=== PATIENT | female | born 1955 | race Caucasian/White ===

== ENCOUNTER 2024-04-06 19:29 | Inpatient (IN) | payer BC, MEDICAID ==
[~2024-04-06] VITALS: Ht 162.6 cm; Wt 74.5 kg
[~2024-04-06 19:29] MED LIST: CARI250T
--- NOTE | 2024-04-06 19:38 | ECG ---
[facility] Test Date: 2024-04-06 Test Time: 19:33:43 Pat Name: PASCUAL PERES Department: ER Room: [address] [place] [address] Gender: F Portal Administrator: THALIA : 1955 Requested By: DANUTA MAYER Order Number: [id number] Reading MD: Hilton Martinez Measurements Intervals [place] Rate: 83 P: -15 GA: 195 QRS: 33 QRSD: 85 T: 70 QT: 400 QTc: 470 Interpretive Statements Sinus rhythm Ventricular premature complex Probable anteroseptal infarct, old Electronically Signed On 04-12-2024 16:56:02 PST by Hilton Martinez Please click the below link to view image of tracing.
--- NOTE | 2024-04-06 19:47 | ED.PDOC ---
SOB-HPI HPI Comments 68 year old female who came to ER via EMS for shortness of breath. Patient does have history of COPD. States for the past 2 days she has been having productive cough with clear sputum, with shortness of breath and wheeze. Inhalers taken has offered no relief. Patient was saturating 100% room air. Chief Complaint: Shortness of breath Time Seen by MD: 19:47 Reviewed notes: Nurses Notes Information Source: Patient Mode of Arrival: EMS Severity: Moderate Timing: Days Duration: Intermittent Context: At Rest, With Light Exertion PE Risk Factors: None History of: COPD Prehospital treatment: Breathing Tx, Oxygen Modifying Factors: Nothing Associated Signs and Symptoms: Wheeze, Cough If cough with SOB: Productive, Clear Past Medical History PAST MEDICAL HISTORY: COPD Surgical History: Denies all surgeries BAND CUTTER History: Denies all BAND CUTTER Hx Family History Family History: Reviewed,noncontributory to illness Social History Smoker: Non-Smoker Alcohol: Denies ETOH Use Drugs: Denies Drug Use Lives In: Home Constitutional: denies: chills, diaphoresis, fatigue, fever, malaise, sweats, weakness, others EENTM: denies: blurred vision, double vision, ear bleeding, ear discharge, ear drainage, ear pain, ear ringing, eye pain, eye redness, hearing loss, mouth pain, mouth swelling, nasal discharge, nose bleeding, nose congestion, nose pain, photophobia, tearing, throat pain, throat swelling, voice changes, others Respiratory: reports: SOB at rest, shortness of breath, wheezing; denies: cough, hemoptysis, orthopnea, SOB with excertion, stridor, others Cardiovascular: denies: chest pain, dizzy spells, diaphoresis, Dyspnea on exertion, edema, irregular heart beat, left arm pain, lightheadedness, palpita tions, PND, syncope, others Gastrointestinal: denies: abdomen distended, abdominal pain, blood streaked nasir wels, constipated, diarrhea, dysphagia, difficulty swallowing, hematemesis, melena, nausea, poor appetite, poor fluid intake, rectal bleeding, rectal pain, vomiting, others Genitourinary: denies: abnormal vagina bleeding, burning, dyspareunia, dysuria, flank pain, frequency, hematuria, incontinence, pain, , vagina discharge, urgency, others Neurological: denies: dizziness, fainting, headache, left sided numbness, left sided weakness, numbness, paresthesia, pre-existing deficit, right sided numbness, right sided weakness, seizure, speech problems, tingling, tremors, weakness, others Musculoskeletal: denies: back pain, gout, joint pain, joint swelling, muscle pain, muscle stiffness, neck pain, others Integumetry: denies: bruises, change in color, change in hair/nails, dryness, laceration, lesions, lumps, rash, wounds, others Allergic/Immunocompromised: denies: Difficulty Healing, Frequent Infections, Hives, Itching, others Hematologic/Lymphatic: denies: anemia, blood clots, easy bleeding, easy bruis ing, swollen glands, others Endocrine: denies: excessive hunger, excessive sweating, excessive thirst, exc essive urination, flushing, intolerance to cold, intolerance to heat, unexplained weight gain, unexplained weight loss, others Psychiatric: denies: anxiety, bipolar disorder, depression, hopeless, panic disorder, schizophrenia, sleepless, suicidal, others Physical Exam General Appearance: No Apparent Distress, Normal HEENT: Normal ENT Inspection, Pharynx Normal, TMs Normal Neck: Full Range of Motion, Non-Tender, Normal, Normal Inspection Respiratory: Chest Non-Tender, No Accessory Muscle Use, Wheezing Cardiovascular: No Edema, No JVD, No Murmur, No Gallop, Normal Peripheral Pulses, Regular Rate/Rhythm Breast Exam: Deferred Gastrointestinal: No Organomegaly, Non Tender, No Pulsatile Mass, Normal Bowel Sounds, Soft Genitalia: Deferred Pelvic: Deferred Rectal: Deferred Extremities: No calf tenderness, Normal capillary refill, Normal inspection, Normal range of motion, Non-tender, No pedal edema Musculoskeletal : Apperance: Normal Neurologic: Alert, textile examiner II-XII nml as Tested, No Motor Deficits, Normal Affect, Normal Mood, No Sensory Deficits Cerebellar Function: Normal Reflexes: Normal Skin: Dry, Normal Color, Warm Lymphatic: No Adenopathy Was a procedure done? Was a procedure done?: No Differential Dx Differential Diagnosis: Asthma, Bronchitis, COPD, Pneumonia, Respiratory Distress X-Ray, Labs, Meds, VS Vital Signs Date Time Temp Pulse Resp B/P (MAP) Pulse Ox O2 Delivery O2 Flow Rate FiO2 04/06/24 20:00 18 94 Room Air* 0 21 04/06/24 19:35 97.5 89 18 150/88 (108) 100 04/06/24 19:35 97.5 89 18 150/88 (108) 100 97.5 04/06/24 19:33 83 Lab Test 04/06/24 19:57 Range/Units White Blood Count 11.3 H 4.4-10.8 10^3/uL Red Blood Count 4.28 4.0-5.20 10^6/uL Hemoglobin 13.7 12.2-16.2 g/dL Hematocrit 39.1 36.0-46.0 % Mean Corpuscular Volume 91.4 80.0-100.0 fL Mean Corpuscular Hemoglobin 32.1 H 28.0-32.0 pg Mean Corpuscular Hemoglobin Concent 35.1 32.0-36.0 g/dL Red Cell Distribution Width 14.5 H 11.8-14.3 % Platelet Count 162 140-450 10^3/uL Mean Platelet Volume 7.7 6.9-10.8 fL Neutrophils (%) (Auto) 78.3 37.0-80.0 % Lymphocytes (%) (Auto) 15.6 10.0-50.0 % Monocytes (%) (Auto) 5.3 0.0-12.0 % Eosinophils (%) (Auto) 0.0 0.0-7.0 % Basophils (%) (Auto) 0.8 0.0-2.0 % Neutrophils # (Auto) 8.8 H 1.6-8.6 10 ^3/uL Lymphocytes # (Auto) 1.8 0.4-5.4 10 ^3/uL Monocytes # (Auto) 0.6 0-1.3 10 ^3/uL Eosinophils # (Auto) 0 0-0.8 10 ^3/uL Basophils # (Auto) 0.1 0-0.2 10 ^3/uL Nucleated Red Blood Cells 0.1 % Sodium Level 139 136-145 mmol/L Potassium Level 3.3 L 3.5-5.1 mmol/L Chloride Level 107 98-107 mmol/L Carbon Dioxide Level 25 20-31 mmol/L Anion Gap 7 5-15 Blood Urea Nitrogen 10 9-23 mg/dL Creatinine 1.02 0.550-1.02 mg/dL Glomerular Filtration Rate Calc 60 >90 mL/min BUN/Creatinine Ratio 9.8 L 10.0-20.0 Serum Glucose 104 74-106 mg/dL Calcium Level 9.6 8.7-10.4 mg/dL Troponin I High Sensitivity 17 </=34 ng/L B-Type Natriuretic Peptide 224.71 0-100 pg/mL Current Medications Medications (Trade) Dose Ordered Sig/Vincenzo Route Start Time Stop Time Status Last Admin Albuterol (Ventolin Medneb) 5 mg ONCE ONCE NEB 04/06/24 19:45 04/06/24 19:46 DC 04/06/24 20:00 Ipratropium [place] (Atrovent Medneb) 0.5 mg ONCE ONCE NEB 04/06/24 19:45 04/06/24 19:46 DC 04/06/24 20:00 Methylprednisolone Sodium Succinate (Solu Medrol) 62.5 mg ONCE ONCE IV 04/06/24 19:45 04/06/24 19:46 DC 04/06/24 21:04 Time of 1ST Reevaluation: 19:44 Reevaluation 1ST: Unchanged Patient Education/Counseling: Diagnosis, Treatment Family Education/Counseling: No Family Present Departure 1 Departure Time of Disposition: 21:28 (Patient presented with acute shortness of breath concerning for acute on chronic COPD Exacerbation, Pneumonia, ACS, CHF, Pneumothorax. Less likely PE, Dissection. Data: 1. I ordered and reviewed the result of at least 3 labs including a CBC, BMP, and Troponin. 2. I independently interpreted the following tests: Chest X-ray shows benign chest .Risk:This patient has a high risk of morbidity due to further diagnostic testing or treatment and may suffer from respiratory or cardiac etiology . Workup reveals a likely COPD Exacerbation and patient should be admitted for further workup. and possible expert consultation.) Impression: Primary Impression: Acute exacerbation of COPD with asthma Disposition: ADMITTED INPATIENT Admit to: Med Surg Condition: Serious Critical Care Note Critical Care Time?: No Stability Stability form required: No Heart Score Heart Score: Heart Score Response (Comments) Value History N/A 0 EKG N/A 0 Age N/A 0 Risk Factors N/A 0 Troponin N/A 0 Total 0 I personally scribed for DANUTA MAYER MD ([email or web address]) on 04/06/24 at 19:47. Electronically submitted by Uvaldo Judge ([email or web address]). DANUTA MAYER MD Apr 06, 2024 19:47
[2024-04-06] MEDS: IPRATROPIUM BROM 0.5 MG/2.5ML INH SOL NEB ONE (20:00)
[2024-04-06] MEDS: ALBUTEROL SULF 2.5 MG/0.5ML(0.5%) NEB SOLN NEB ONE (20:00)
[2024-04-06 20:03] LABS: Basophils # (auto) 0.1 10 ^3/uL (0-0.2); Basophils % (auto) 0.8 % (0.0-2.0); Eosinophils # (auto) 0 10 ^3/uL (0-0.8); Hematocrit 39.1 % (36.0-46.0); Hemoglobin 13.7 g/dL (12.2-16.2); Lymphocytes # (auto) 1.8 10 ^3/uL (0.4-5.4); Lymphocytes % (auto) 15.6 % (10.0-50.0); Mean Corpuscular Hemoglobin 32.1 pg (28.0-32.0); Mean Corpuscular Hgb Conc. 35.1 g/dL (32.0-36.0); Mean Corpuscular Volume 91.4 fL (80.0-100.0); Monocytes # (auto) 0.6 10 ^3/uL (0-1.3); Monocytes % (auto) 5.3 % (0.0-12.0); Neutrophils # (auto) 8.8 10 ^3/uL (1.6-8.6); Neutrophils % (auto) 78.3 % (37.0-80.0); Nucleated Red Blood Cells % 0.1 %; Platelet Count (auto) 162 10^3/uL (140-450); Red Blood Cells 4.28 10^6/uL (4.0-5.20); Red Cell Distribution Width 14.5 % (11.8-14.3); White Blood Cell 11.3 10^3/uL (4.4-10.8)
[2024-04-06 20:19] LABS: Chloride 107 mmol/L (98-107); Potassium 3.3 mmol/L (3.5-5.1); Sodium 139 mmol/L (136-145)
[2024-04-06 20:20] LABS: Anion Gap 7 (5-15); Carbon Dioxide 25 mmol/L (20-31)
[2024-04-06 20:21] LABS: Calcium 9.6 mg/dL (8.7-10.4)
[2024-04-06 20:26] LABS: BUN/Creatinine Ratio 9.8 (10.0-20.0); Blood Urea Nitrogen 10 mg/dL (9-23); Glucose 104 mg/dL (74-106)
--- NOTE | 2024-04-06 20:39 | DVH ---
Procedure: XY CHEST TWO VIEWS ROUTINE 04/06/2024 08:16 PM Indication: sob. Comparison: None TECHNIQUE: XY CHEST TWO VIEWS ROUTINE FINDINGS: Medical devices: None. Cardiomediastinal: The heart is normal in size. Pulmonary vasculature is within normal limits. Lungs: No focal pulmonary opacity is seen. The costophrenic angles are clear. No pneumothorax. Bones/soft tissues: No acute abnormality is noted. IMPRESSION: 1. No acute cardiopulmonary disease.
[2024-04-06] MEDS: methylPREDNISolone SOD SUCC 125 MG/2 ML VL IV ONE (21:04)
[2024-04-07] VITALS (12 sets, daily range): BP systolic 119–151; BP diastolic 47–81; PULSE 60–95; RESP 15–20; TEMP 97.6–98.1; O2SAT 93–99
[2024-04-07] MEDS ORDERED: MAALOX PLUS or MAALOX 30 ML PO PRN (02:00)
[2024-04-07] MEDS ORDERED: DOCUSATE SOD 100 MG CAP PO PRN (02:00)
[2024-04-07] MEDS ORDERED: ACETAMINOPHEN 325 MG TAB PO PRN (02:00)
[2024-04-07] MEDS ORDERED: MORPHINE SULFATE INJ 2 MG/ml SYRG IV PRN (02:00)
[2024-04-07] MEDS ORDERED: ONDANSETRON HCL 4 MG/2 ML VIAL IV PRN (02:00)
--- NOTE | 2024-04-07 02:02 | DVHHP2 ---
History of Present Illness Reason for Visit: Asthma History of Present Illness 68 yo wiwth history of asthma copd came to the ed with cough worsing trouble breathing and difficultly managing oxygenation at home patient was recommended for evaluation for worsening copd and asthma exacerbation Pulmonary: Asthma, COPD Review of Systems Constitutional: No: Fever, Chills, Sweats, Weakness, Malaise, Other Eyes: No: Pain, Vision change, Conjunctivae inflammation, Eyelid inflammation, Other, Redness ENT: No: Ear pain, Ear discharge, Nose pain, Nose discharge, Nose congestion, Mouth pain, Mouth swelling, Throat pain, Throat swelling, Other Respiratory: Cough, Shortness of breath, SOB with excertion; No: Dry, Wheezing, Hemoptysis, Pleuritic Pain, Sputum, Wheezing, Other Cardiovascular: No: Chest Pain, Palpitations, Orthopnea, Paroxysmal Noc. Dyspnea, Edema, Lt Headedness, Other Gastrointestinal: No: Nausea, Vomiting, Abdominal Pain, Diarrhea, Constipation, Melena, Hematochezia, Other Genitourinary: No Dysuria, No Frequency, No Incontinence, No Hematuria, No Retention, No Other Musculoskeletal: No: other, neck pain, shoulder pain, arm pain, back pain, hand pain, leg pain, foot pain Skin: No: Rash, Lesions, Jaundice, Bruising, Other Neurological: No: Weakness, Numbness, Incoordination, Change in speech, Confusion, Seizures, Other Allergies: Coded Allergies: NO KNOWN ALLERGIES (Unverified , 01/17/10) Exam Vital Signs Vital Signs Date Time Temp Pulse Resp B/P (MAP) Pulse Ox O2 Delivery O2 Flow Rate FiO2 04/07/24 00:42 98.0 80 18 151/81 (104) 93 98.0 04/06/24 20:00 Room Air* 0 21 General Appearance: Alert, Oriented X3 HEENT: PERRLA, EOMI Respiratory: Clear to auscultation (wheezing ) Cardiovascular: Regular rate, Normal S1 Abdominal: Normal bowel sounds, Soft Extremities: No clubbing, No cyanosis Skin: No rashes, No breakdown Neuro: Normal gait, Normal speech Psych/Mental Status: Mood NL Labs/Xrays Labs Test 04/07/24 01:28 04/06/24 19:57 Range/Units White Blood Count 11.3 H 4.4-10.8 10^3/uL Red Blood Count 4.28 4.0-5.20 10^6/uL Hemoglobin 13.7 12.2-16.2 g/dL Hematocrit 39.1 36.0-46.0 % Mean Corpuscular Volume 91.4 80.0-100.0 fL Mean Corpuscular Hemoglobin 32.1 H 28.0-32.0 pg Mean Corpuscular Hemoglobin Concent 35.1 32.0-36.0 g/dL Red Cell Distribution Width 14.5 H 11.8-14.3 % Platelet Count 162 140-450 10^3/uL Mean Platelet Volume 7.7 6.9-10.8 fL Neutrophils (%) (Auto) 78.3 37.0-80.0 % Lymphocytes (%) (Auto) 15.6 10.0-50.0 % Monocytes (%) (Auto) 5.3 0.0-12.0 % Eosinophils (%) (Auto) 0.0 0.0-7.0 % Basophils (%) (Auto) 0.8 0.0-2.0 % Neutrophils # (Auto) 8.8 H 1.6-8.6 10 ^3/uL Lymphocytes # (Auto) 1.8 0.4-5.4 10 ^3/uL Monocytes # (Auto) 0.6 0-1.3 10 ^3/uL Eosinophils # (Auto) 0 0-0.8 10 ^3/uL Basophils # (Auto) 0.1 0-0.2 10 ^3/uL Nucleated Red Blood Cells 0.1 % Sodium Level 139 136-145 mmol/L Potassium Level 3.3 L 3.5-5.1 mmol/L Chloride Level 107 98-107 mmol/L Carbon Dioxide Level 25 20-31 mmol/L Anion Gap 7 5-15 Blood Urea Nitrogen 10 9-23 mg/dL Creatinine 1.02 0.550-1.02 mg/dL Glomerular Filtration Rate Calc 60 >90 mL/min BUN/Creatinine Ratio 9.8 L 10.0-20.0 Serum Glucose 104 74-106 mg/dL Calcium Level 9.6 8.7-10.4 mg/dL Troponin I High Sensitivity 17 </=34 ng/L B-Type Natriuretic Peptide 224.71 0-100 pg/mL Assessment/Plan Assessment/Plan Admit Med/Surg Asthma/Copd Exacerbation Prn breathing treatments BID steroids IV abx serology for covid and flu pending Plan discussed with: Patient Problem List: (1) Acute exacerbation of COPD with asthma Date of Service: Apr 07, 2024 Billing Provider: ELEAZAR BEATTY MD Common Visit Codes: [id number] INP/OBS CARE (HIGH) ELEAZAR BEATTY MD Apr 07, 2024 02:02
[2024-04-07] MEDS: SODIUM CHLORIDE 0.9% 1,000 ML IV SCH (02:30)
[2024-04-07 02:36] LABS: COVID19 ANTIGEN SOFIA FIA NEGATIVE (NEGATIVE); Rapid Influenza A Negative (Negative); Rapid Influenza B Negative (Negative)
[2024-04-07 03:38] LABS: Basophils # (auto) 0 10 ^3/uL (0-0.2); Basophils % (auto) 0.1 % (0.0-2.0); Eosinophils # (auto) 0 10 ^3/uL (0-0.8); Hematocrit 36.5 % (36.0-46.0); Hemoglobin 12.9 g/dL (12.2-16.2); Lymphocytes # (auto) 0.6 10 ^3/uL (0.4-5.4); Lymphocytes % (auto) 9.7 % (10.0-50.0); Mean Corpuscular Hemoglobin 32.2 pg (28.0-32.0); Mean Corpuscular Hgb Conc. 35.2 g/dL (32.0-36.0); Mean Corpuscular Volume 91.4 fL (80.0-100.0); Monocytes # (auto) 0.1 10 ^3/uL (0-1.3); Monocytes % (auto) 1.2 % (0.0-12.0); Neutrophils # (auto) 5.4 10 ^3/uL (1.6-8.6); Platelet Count (auto) 156 10^3/uL (140-450); Red Cell Distribution Width 13.9 % (11.8-14.3); White Blood Cell 6.1 10^3/uL (4.4-10.8)
[2024-04-07 03:59] LABS: Chloride 107 mmol/L (98-107); Potassium 3.9 mmol/L (3.5-5.1); Sodium 137 mmol/L (136-145)
[2024-04-07 04:00] LABS: Anion Gap 6 (5-15); Calcium 9.7 mg/dL (8.7-10.4); Carbon Dioxide 24 mmol/L (20-31)
[2024-04-07 04:05] LABS: BUN/Creatinine Ratio 7.2 (10.0-20.0); Blood Urea Nitrogen 7 mg/dL (9-23); Glucose 137 mg/dL (74-106)
[2024-04-07] MEDS: methylPREDNISolone SOD SUCC 40 MG/ML VL IV SCH (08:31)
[2024-04-07] MEDS: cefTRIAXone 1GM/50ML D5W 50 ML IV SCH (08:32)
[2024-04-07] MEDS: ENOXAPARIN SOD 40 MG/0.4 ML SYRINGE SC SCH (08:32)
[2024-04-07] MEDS ORDERED: ENOXAPARIN SOD 30 MG/0.3 ML SYRINGE SC SCH (10:00)
[2024-04-07] MEDS: ALBUTEROL SULF 2.5 MG/0.5ML(0.5%) NEB SOLN NEB PRN (10:01)
[2024-04-07] MEDS: IPRATROPIUM BROM 0.5 MG/2.5ML INH SOL NEB PRN (10:02)
[2024-04-07] MEDS: PNEUMOCOCCAL VACC POLYS 25 MCG/0.5 ML VIAL IM ONE (11:45)
--- NOTE | 2024-04-07 11:56 | DVHPN2 ---
Reviewed: Care Plan, H&P, Labs, Medications, Previous Orders, Radiology Changes from previous H/P or p: No Changes Eyes: No Pain, No Vision change, No Conjunctivae inflammation, No Eyelid inflammation, No Other, No Redness ENT: No Ear pain, No Ear discharge, No Nose pain, No Nose discharge, No Nose congestion, No Mouth pain, No Mouth swelling, No Throat pain, No Throat swelling, No Other Cardiovascular: No Chest Pain, No Palpitations, No Orthopnea, No Paroxysmal Noc. Dyspnea, No Edema, No Lt Headedness, No Other Respiratory: Cough; No Dry; Shortness of breath, SOB with excertion; No Wheezing, No Hemoptysis, No Pleuritic Pain, No Sputum, No Other Gastrointestinal: No Nausea, No Vomiting, No Abdominal Pain, No Diarrhea, No Constipation, No Melena, No Hematochezia, No Other Genitourinary: No Dysuria, No Frequency, No Incontinence, No Hematuria, No Retention, No Other Musculoskeletal: No other, No neck pain, No shoulder pain, No arm pain, No back pain, No hand pain, No leg pain, No foot pain Skin: No Rash, No Lesions, No Jaundice, No Bruising, No Other Objective Vitals Vital Signs Date Time Temp Pulse Resp B/P (MAP) Pulse Ox O2 Delivery O2 Flow Rate FiO2 04/07/24 11:12 97.6 95 16 144/69 (94) 94 97.6 04/07/24 10:02 Room Air* 0 21 Medications Current Medications Medications Dose Ordered Sig/Vincenzo Route Start Time Stop Time Status Last Admin Dose Admin Ceftriaxone Sodium 50 ml @ 100 mls/hr DAILY IV 04/07/24 10:00 04/07/24 08:32 100 MLS/HR Ipratropium [place] 0.5 mg Q4HWA PRN NEB 04/07/24 02:00 04/07/24 10:02 0.5 MG Albuterol 2.5 mg Q4HWA PRN NEB 04/07/24 02:00 04/07/24 10:01 2.5 MG Methylprednisolone Sodium Succinate 40 mg BID IV 04/07/24 10:00 04/07/24 08:31 40 MG Sodium Chloride 1,000 ml @ 60 mls/hr [id number] IV 04/07/24 02:00 04/07/24 02:30 60 MLS/HR Lorazepam 0.5 mg Q6HP PRN PO 04/07/24 02:00 Al Hydrox/Mg Hydrox/Simethicone 30 ml Q6HP PRN PO 04/07/24 02:00 Docusate Sodium 100 mg BIDPRN PRN PO 04/07/24 02:00 Acetaminophen 650 mg Q6HP PRN PO 04/07/24 02:00 Temazepam 15 mg QHSP PRN PO 04/07/24 02:00 Acetaminophen/ Hydrocodone Bitart 1 tab Q4HP PRN PO 04/07/24 02:00 Ondansetron HCl 4 mg Q4HP PRN IV 04/07/24 02:00 Morphine Sulfate 2 mg Q4HPRN PRN IV 04/07/24 02:00 Enoxaparin Sodium 30 mg DAILY SC 04/07/24 10:00 UNV Enoxaparin Sodium 40 mg DAILY SC 04/07/24 10:00 04/07/24 08:32 40 MG Laboratory Results Laboratory Tests 04/07/24 03:23 Chemistry Test 04/06/24 19:57 04/07/24 03:23 Calcium Level 9.6 mg/dL (8.7-10.4) 9.7 mg/dL (8.7-10.4) Cardiac Markers Test 04/06/24 19:57 B-Type Natriuretic Peptide 224.71 pg/mL (0-100) Labs and/or images reviewed: Labs reviewed by me, Image(s) reviewed by me Assessment/Plan Assessment/Plan Sepsis Secondary to pneumonia Acute Hypoxic respiratory failure: Oxygen by nasal cannula Acute COPD exacerbation: Albuterol Atrovent Solu-Medrol Possible community-acquired pneumonia: Rocephin Chronic anemia Tasha test negative Flu test negative Time spent 45 minutes Advanced care planning time 20 minutes Patient is full code Plan discussed with: Patient Date of Service: Apr 07, 2024 Billing Provider: NURA CONNOR MD Common Visit Codes: [id number] INP/OBS CARE(HIGH) NURA CONNOR MD Apr 07, 2024 11:56
[2024-04-07] MEDS: HYDROcodone-ACET 5/325MG TAB PO PRN (14:54)
[2024-04-07] MEDS: TEMAZEPAM 15 MG CAP PO PRN (21:19)
[2024-04-08 00:43] VITALS: BP 123/56; PULSE 80; RESP 13; TEMP 98.3; O2SAT 95
[2024-04-08] MEDS: LORazepam 0.5 MG TAB PO PRN (02:24)
[2024-04-08 04:34] VITALS: BP 133/67; PULSE 59; RESP 15; TEMP 97.9; O2SAT 96
[2024-04-08 06:55] VITALS: O2SAT 97
[2024-04-08 08:36] LABS: Hepatitis B Surface Antigen Negative (Negative)
[2024-04-08 08:51] VITALS: BP 116/51; PULSE 58; RESP 18; TEMP 98.5; O2SAT 96
[2024-04-08 08:58] LABS: Hepatitis C Antibody Negative (Negative)
[2024-04-08] MEDS ORDERED: LEVO500T91 PO (09:53)
[2024-04-08] MEDS ORDERED: ALBUAER3 IN (09:53)
--- NOTE | 2024-04-08 09:54 | DVHPN2 ---
Reviewed: Care Plan, H&P, Labs, Medications, Previous Orders, Radiology Changes from previous H/P or p: No Changes Eyes: No Pain, No Vision change, No Conjunctivae inflammation, No Eyelid inflammation, No Other, No Redness ENT: No Ear pain, No Ear discharge, No Nose pain, No Nose discharge, No Nose congestion, No Mouth pain, No Mouth swelling, No Throat pain, No Throat swelling, No Other Cardiovascular: No Chest Pain, No Palpitations, No Orthopnea, No Paroxysmal Noc. Dyspnea, No Edema, No Lt Headedness, No Other Respiratory: Cough; No Dry; Shortness of breath, SOB with excertion; No Wheezing, No Hemoptysis, No Pleuritic Pain, No Sputum, No Other Gastrointestinal: No Nausea, No Vomiting, No Abdominal Pain, No Diarrhea, No Constipation, No Melena, No Hematochezia, No Other Genitourinary: No Dysuria, No Frequency, No Incontinence, No Hematuria, No Retention, No Other Musculoskeletal: No other, No neck pain, No shoulder pain, No arm pain, No back pain, No hand pain, No leg pain, No foot pain Skin: No Rash, No Lesions, No Jaundice, No Bruising, No Other Objective Vitals Vital Signs Date Time Temp Pulse Resp B/P (MAP) Pulse Ox O2 Delivery O2 Flow Rate FiO2 04/08/24 08:51 98.5 58 18 116/51 (72) 96 98.5 04/07/24 23:05 04/07/24 20:00 0 21 Intake/Output Intake and Output 04/08/24 07:00 Intake Total 1540 ml Output Total 0 ml Balance 1540 ml Intake Oral 970 ml IV Total 570 ml Output Stool Total 0 ml # Voids 12 Medications Current Medications Medications Dose Ordered Sig/Vincenzo Route Start Time Stop Time Status Last Admin Dose Admin Ceftriaxone Sodium 50 ml @ 100 mls/hr DAILY IV 04/07/24 10:00 04/08/24 08:48 100 MLS/HR Ipratropium [place] 0.5 mg Q4HWA PRN NEB 04/07/24 02:00 04/07/24 15:22 0.5 MG Albuterol 2.5 mg Q4HWA PRN NEB 04/07/24 02:00 04/07/24 15:22 2.5 MG Methylprednisolone Sodium Succinate 40 mg BID IV 04/07/24 10:00 04/08/24 08:48 40 MG Sodium Chloride 1,000 ml @ 60 mls/hr [id number] IV 04/07/24 02:00 04/07/24 19:00 60 MLS/HR Lorazepam 0.5 mg Q6HP PRN PO 04/07/24 02:00 04/08/24 02:24 0.5 MG Al Hydrox/Mg Hydrox/Simethicone 30 ml Q6HP PRN PO 04/07/24 02:00 Docusate Sodium 100 mg BIDPRN PRN PO 04/07/24 02:00 Acetaminophen 650 mg Q6HP PRN PO 04/07/24 02:00 Temazepam 15 mg QHSP PRN PO 04/07/24 02:00 04/07/24 21:19 15 MG Acetaminophen/ Hydrocodone Bitart 1 tab Q4HP PRN PO 04/07/24 02:00 04/08/24 06:11 1 TAB Ondansetron HCl 4 mg Q4HP PRN IV 04/07/24 02:00 Morphine Sulfate 2 mg Q4HPRN PRN IV 04/07/24 02:00 Enoxaparin Sodium 30 mg DAILY SC 04/07/24 10:00 UNV Enoxaparin Sodium 40 mg DAILY SC 04/07/24 10:00 04/08/24 08:48 40 MG Laboratory Results Laboratory Tests 04/07/24 03:23 Labs and/or images reviewed: Labs reviewed by me, Image(s) reviewed by me Assessment/Plan Assessment/Plan Sepsis Secondary to pneumonia Acute Hypoxic respiratory failure: Oxygen by nasal cannula Acute COPD exacerbation: Albuterol Atrovent Solu-Medrol Possible community-acquired pneumonia: Rocephin Chronic anemia Tasha test negative Flu test negative Patient feels better and wants to go home Plan discussed with: Patient Date of Service: Apr 08, 2024 Billing Provider: NURA CONNOR MD Common Visit Codes: [id number] INP/OBS CARE(HIGH) NURA CONNOR MD Apr 08, 2024 09:53
--- NOTE | 2024-04-08 09:57 | DVHDS2 ---
Discharge Summary Date of Admission Apr 07, 2024 at 01:49 Date of Discharge: Apr 08, 2024 Admitting Diagnosis Shortness of breath Wounds: None Labs/Diagnostic Data: Laboratory Results Test 04/07/24 03:23 04/07/24 01:28 04/06/24 19:57 White Blood Count 6.1 10^3/uL (4.4-10.8) Red Blood Count 4.00 10^6/uL (4.0-5.20) Hemoglobin 12.9 g/dL (12.2-16.2) Hematocrit 36.5 % (36.0-46.0) Mean Corpuscular Volume 91.4 fL (80.0-100.0) Mean Corpuscular Hemoglobin 32.2 pg (28.0-32.0) Mean Corpuscular Hemoglobin Concent 35.2 g/dL (32.0-36.0) Red Cell Distribution Width 13.9 % (11.8-14.3) Platelet Count 156 10^3/uL (140-450) Mean Platelet Volume 7.6 fL (6.9-10.8) Neutrophils (%) (Auto) 89.0 % (37.0-80.0) Lymphocytes (%) (Auto) 9.7 % (10.0-50.0) Monocytes (%) (Auto) 1.2 % (0.0-12.0) Eosinophils (%) (Auto) 0.0 % (0.0-7.0) Basophils (%) (Auto) 0.1 % (0.0-2.0) Neutrophils # (Auto) 5.4 10 ^3/uL (1.6-8.6) Lymphocytes # (Auto) 0.6 10 ^3/uL (0.4-5.4) Monocytes # (Auto) 0.1 10 ^3/uL (0-1.3) Eosinophils # (Auto) 0 10 ^3/uL (0-0.8) Basophils # (Auto) 0 10 ^3/uL (0-0.2) Nucleated Red Blood Cells 0.0 % Sodium Level 137 mmol/L (136-145) Potassium Level 3.9 mmol/L (3.5-5.1) Chloride Level 107 mmol/L (98-107) Carbon Dioxide Level 24 mmol/L (20-31) Anion Gap 6 (5-15) Blood Urea Nitrogen 7 mg/dL (9-23) Creatinine 0.97 mg/dL (0.550-1.02) Glomerular Filtration Rate Calc 64 mL/min (>90) BUN/Creatinine Ratio 7.2 (10.0-20.0) Serum Glucose 137 mg/dL (74-106) Calcium Level 9.7 mg/dL (8.7-10.4) Hepatitis B Surface Antigen Negative (Negative) Hepatitis C Antibody Negative (Negative) Influenza Type A Antigen Negative (Negative) Influenza Type B Antigen Negative (Negative) SARS-CoV-2 Antigen (Rapid) Negative (NEGATIVE) Troponin I High Sensitivity 17 ng/L (</=34) B-Type Natriuretic Peptide 224.71 pg/mL (0-100) Other Laboratory Tests 04/07/24 03:23 Brief Hx & Hospital Course: 68-year-old female with a history of COPD admitted for COPD exacerbation patient was found to be in sepsis possibly due to community-acquired pneumonia treated with albuterol Atrovent Solu-Medrol and Rocephin Tasha test negative COVID test negative she feels better and wants to go home discharged home on [address]. Comfortable on room air at the time of discharge. Consults/Reason for consult None Operations or Procedures None Condition at Discharge: Fair Final Diagnosis/Problems List Sepsis Secondary to pneumonia Acute Hypoxic respiratory failure: Oxygen by nasal cannula Acute COPD exacerbation: Albuterol Atrovent Solu-Medrol Possible community-acquired pneumonia: Rocephin Chronic anemia Tasha test negative Flu test negative Discharge Disposition: Home Discharge Instruct/Medications Diet: Regular Activity: No Restrictions, As Tolerated Follow Up/Referral: Follow up with your primary Medications: Carina Khan MDI Transmitted to [facility] [id number] (Time taken for discharge summary 39 minutes) Discharge Statement: "Patient was advised to return to the ER or call 911 if any headaches, dizziness, shortness of breath, chest pain, abdominal pain, bleeding, fevers, or worsening of medical condition. Patient was counseled about treatment plan, medications, possible side effects, patientverbalized understanding. All questions were answered to the best of my ability. This discharge took greater then 30 minutes in planning, reviewing documentation, counseling the patient, and discussing with other team members." ASSESSMENT ASSESSMENT Hospital Course Improved Assessment Sepsis Secondary to pneumonia Acute Hypoxic respiratory failure: Oxygen by nasal cannula Acute COPD exacerbation: Albuterol Atrovent Solu-Medrol Possible community-acquired pneumonia: Rocephin Chronic anemia Tasha test negative Flu test negative Date of Service: Apr 08, 2024 Billing Provider: NURA CONNOR MD Common Visit Codes: [id number] DISCH DAY >30min NURA CONNOR MD Apr 08, 2024 09:57
[2024-04-08 11:03] VITALS: BP 116/51; PULSE 58; RESP 18; TEMP 98.5; O2SAT 96
[2024-04-09] MEDS ORDERED: GABA-1250 PO (14:55)
== END 2024-04-08 12:32 | disposition home or self-care (01) | DRG 202 ==
LOC: EDBD 19:29 → ER 19:34 → OVERFLOW 04-07 01:49 → EAST 04-07 10:00
PROVIDERS: ADMIT Hospitalist; ATTEND Family Medicine
DX: J45.901 Unspecified asthma with (acute) exacerbation (principal); J44.1 Chronic obstructive pulmonary disease with (acute) exacerbation; Z20.822 Contact with and (suspected) exposure to COVID-19; D64.9 Anemia, unspecified
CPT/HCPCS: 36415; 71046; 80048; 83880; 84484; 85025; 86803; 87340; 87426; 87804; 93005; 94640; 96365; 96372; 96375; G0378

== ENCOUNTER 2024-04-08 16:21 | Inpatient (IN) | payer BC, MEDICAID ==
[~2024-04-08] VITALS: Ht 162.6 cm; Wt 78.1 kg
[2024-04-08 11:52] VITALS: BP 158/79; PULSE 73; RESP 17; TEMP 98.2; O2SAT 98
[~2024-04-08 16:21] MED LIST changes: +ALBUAER3 IN; +LEVO500T91 PO
--- NOTE | 2024-04-08 16:38 | ED.PDOC ---
History of Present Illness HPI Comments 68-year-old female who comes in with chief complaint of chest pain times several weeks. The patient states that the symptoms started to worsened today. She was recently admitted for chest pain but now states that the pain is a 7/10. It was pressure-like and radiates towards the back and left arm. The chest pain is also associated with some shortness for breath. There has been some nausea but no vomiting or diarrhea. The patient denies any fever or chills. Chief Complaint: Chest Pain Time Seen by MD: 16:24 Primary Care Provider: NONE Reviewed Notes: Nurses Notes, Medications, Allergies (No allergies to medications) Allergies: Coded Allergies: NO KNOWN ALLERGIES (Unverified , 01/17/10) Home Meds Active Scripts Albuterol Sulfate (VENTOLIN MDI) 90 Mcg Ih, 90 MCG IN Q4HR, #1 INH Prov:NURA CONNOR MD 04/08/24 Levofloxacin Hemihydrate (LEVAQUIN 500 MG) 500 Mg Tab, 1 TAB PO DAILY, #7 TAB Prov:NURA CONNOR MD 04/08/24 Reported Medications Carisoprodol (Soma) 250 Mg Tab 01/17/10 Information Source: Patient Mode of Arrival: Ambulatory Severity: Moderate Timing: Days Duration: Since onset Prehospital treatment: None Location: Substernal pressure-like chest pain that radiates to the left arm Associated signs and symptoms Associated nausea Past Medical History PAST MEDICAL HISTORY: CAD, COPD, High Lipids, HTN Surgical History: PTCA Surgical History (Other): Right hip surgery DEVELOPMENT SPECIALIST History: Denies all DEVELOPMENT SPECIALIST Hx Family History Family History: Family hx of heart love Social History Smoker: Cigarettes Alcohol: Denies ETOH Use Drugs: Denies Drug Use Lives In: Home Constitutional: denies: chills, diaphoresis, fatigue, fever, malaise, sweats, weakness, others EENTM: denies: blurred vision, double vision, ear bleeding, ear discharge, ear drainage, ear pain, ear ringing, eye pain, eye redness, hearing loss, mouth pain, mouth swelling, nasal discharge, nose bleeding, nose congestion, nose pain, photophobia, tearing, throat pain, throat swelling, voice changes, others Respiratory: denies: cough, hemoptysis, orthopnea, SOB at rest, shortness of breath, SOB with excertion, stridor, wheezing, others Cardiovascular: reports: chest pain; denies: dizzy spells, diaphoresis, Dyspnea on exertion, edema, irregular heart beat, left arm pain, lightheadedness, palpitations, PND, syncope, others Gastrointestinal: denies: abdomen distended, abdominal pain, blood streaked bowels, constipated, diarrhea, dysphagia, difficulty swallowing, hematemesis, melena, nausea, poor appetite, poor fluid intake, rectal bleeding, rectal pain, vomiting, others Genitourinary: denies: abnormal vagina bleeding, burning, dyspareunia, dysuria, flank pain, frequency, hematuria, incontinence, pain, , vagina discharge, urgency, others Neurological: denies: dizziness, fainting, headache, left sided numbness, left sided weakness, numbness, paresthesia, pre-existing deficit, right sided numbness, right sided weakness, seizure, speech problems, tingling, tremors, weakness, others Musculoskeletal: denies: back pain, gout, joint pain, joint swelling, muscle pain, muscle stiffness, neck pain, others Integumetry: denies: bruises, change in color, change in hair/nails, dryness, laceration, lesions, lumps, rash, wounds, others Allergic/Immunocompromised: denies: Difficulty Healing, Frequent Infections, Hives, Itching, others Hematologic/Lymphatic: denies: anemia, blood clots, easy bleeding, easy bruising, swollen glands, others Endocrine: denies: excessive hunger, excessive sweating, excessive thirst, excessive urination, flushing, intolerance to cold, intolerance to heat, unexplained weight gain, unexplained weight loss, others Psychiatric: denies: anxiety, bipolar disorder, depression, hopeless, panic disorder, schizophrenia, sleepless, suicidal, others Physical Exam General Appearance: Moderate Distress HEENT: Normal ENT Inspection, Pharynx Normal, TMs Normal Neck: Full Range of Motion, Non-Tender, Normal, Normal Inspection Respiratory: Chest Non-Tender, Lungs Clear, No Accessory Muscle Use, No Respiratory Distress, Normal Breath Sounds Cardiovascular: No Edema, No JVD, No Murmur, No Gallop, Normal Peripheral Pulses, Regular Rate/Rhythm Breast Exam: Deferred Gastrointestinal: No Organomegaly, Non Tender, No Pulsatile Mass, Normal Bowel Sounds, Soft Genitalia: Deferred Pelvic: Deferred Rectal: Deferred Extremities: No calf tenderness, Normal capillary refill, Normal inspection, Normal range of motion, Non-tender, No pedal edema Musculoskeletal : Apperance: Normal 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 Was a procedure done?: No EKG EKG : Pulse Rate (adult): 77 [place]: Normal Cardiac Rhythm: NSR Block: None ST: Nonsp Differential Dx Considerations may include: ACS, AL, generalized weakness, electrolyte imbalance X-Ray, Labs, Meds, VS Vital Signs Date Time Temp Pulse Resp B/P (MAP) Pulse Ox O2 Delivery O2 Flow Rate FiO2 04/08/24 16:39 98.0 82 17 132/67 (88) 97 04/08/24 16:38 77 Lab Test 04/08/24 16:32 Range/Units White Blood Count 9.1 # 4.4-10.8 10^3/uL Red Blood Count 4.37 4.0-5.20 10^6/uL Hemoglobin 14.1 12.2-16.2 g/dL Hematocrit 40.5 # 36.0-46.0 % Mean Corpuscular Volume 92.6 80.0-100.0 fL Mean Corpuscular Hemoglobin 32.3 H 28.0-32.0 pg Mean Corpuscular Hemoglobin Concent 34.9 32.0-36.0 g/dL Red Cell Distribution Width 14.5 H 11.8-14.3 % Platelet Count 187 140-450 10^3/uL Mean Platelet Volume 8.3 6.9-10.8 fL Neutrophils (%) (Auto) 85.2 H 37.0-80.0 % Lymphocytes (%) (Auto) 10.6 10.0-50.0 % Monocytes (%) (Auto) 3.8 0.0-12.0 % Eosinophils (%) (Auto) 0.0 0.0-7.0 % Basophils (%) (Auto) 0.4 0.0-2.0 % Neutrophils # (Auto) 7.8 1.6-8.6 10 ^3/uL Lymphocytes # (Auto) 1.0 0.4-5.4 10 ^3/uL Monocytes # (Auto) 0.3 0-1.3 10 ^3/uL Eosinophils # (Auto) 0 0-0.8 10 ^3/uL Basophils # (Auto) 0 0-0.2 10 ^3/uL Nucleated Red Blood Cells 0.1 % Prothrombin Time Pending Prothrombin Time INR Pending Activated Partial Thromboplast Time Pending Sodium Level 138 136-145 mmol/L Potassium Level 4.1 3.5-5.1 mmol/L Chloride Level 106 98-107 mmol/L Carbon Dioxide Level 24 20-31 mmol/L Anion Gap 8 5-15 Blood Urea Nitrogen 17 # 9-23 mg/dL Creatinine 1.27 #H 0.550-1.02 mg/dL Glomerular Filtration Rate Calc 46 >90 mL/min BUN/Creatinine Ratio 13.4 10.0-20.0 Serum Glucose 129 H 74-106 mg/dL Calcium Level 10.4 8.7-10.4 mg/dL Magnesium Level 2.0 1.6-2.6 mg/dL Total Bilirubin 0.4 0.2-1.0 mg/dL Aspartate Amino Transferase (AST) 10 L 13-40 U/L Alanine Aminotransferase (ALT) 20 7-40 U/L Alkaline Phosphatase 73 46-116 U/L Troponin I High Sensitivity 9 </=34 ng/L B-Type Natriuretic Peptide 657.88 0-100 pg/mL Total Protein 7.4 5.7-8.2 g/dL Albumin 4.5 3.2-4.8 g/dL The patient's CBC is within normal limits. The chemistry panel shows a creatinine of 1.27 The rest of the chemistry panel is within normal limits The BNP is 657.88 At this time the chest x-ray shows: No sign of any significant abnormalities At this time, the patient was given aspirin and will be admitted to the hospitalist Images Reviewed?: Images reviewed and evaluated by me Time of 1ST Reevaluation: 16:37 Reevaluation 1ST: Unchanged Patient Education/Counseling: Diagnosis, Treatment, Prognosis Family Education/Counseling: No Family Present Departure 1 Departure Time of Disposition: 17:25 Impression: Primary Impression: Acute coronary syndrome Disposition: 09 ADMITTED INPATIENT Admit to: [facility] Condition: Fair Critical Care Note Critical Care Time?: Yes (35 min-critical care time only) Stability Stability form required: Yes Unstable for transfer: Telemetry monitoring (Telemetry monitoring required), ED Physician Assesment (Clinical assesment) Heart Score Heart Score: Heart Score Response (Comments) Value History Moderate Suspicious 1 EKG Normal 0 Age >65 2 Risk Factors 1 or 2 risk factors 1 Troponin Normal limit 0 Total 4 AUSTIN GRANDA MD Apr 08, 2024 16:38
[2024-04-08 16:51] LABS: Basophils # (auto) 0 10 ^3/uL (0-0.2); Basophils % (auto) 0.4 % (0.0-2.0); Eosinophils # (auto) 0 10 ^3/uL (0-0.8); Hematocrit 40.5 % (36.0-46.0); Hemoglobin 14.1 g/dL (12.2-16.2); Lymphocytes % (auto) 10.6 % (10.0-50.0); Mean Corpuscular Hemoglobin 32.3 pg (28.0-32.0); Mean Corpuscular Hgb Conc. 34.9 g/dL (32.0-36.0); Mean Corpuscular Volume 92.6 fL (80.0-100.0); Monocytes # (auto) 0.3 10 ^3/uL (0-1.3); Monocytes % (auto) 3.8 % (0.0-12.0); Neutrophils # (auto) 7.8 10 ^3/uL (1.6-8.6); Neutrophils % (auto) 85.2 % (37.0-80.0); Nucleated Red Blood Cells % 0.1 %; Platelet Count (auto) 187 10^3/uL (140-450); Red Blood Cells 4.37 10^6/uL (4.0-5.20); Red Cell Distribution Width 14.5 % (11.8-14.3); White Blood Cell 9.1 10^3/uL (4.4-10.8)
[2024-04-08 17:11] LABS: Alanine Aminotransferase 20 U/L (7-40); Albumin 4.5 g/dL (3.2-4.8); Alkaline Phosphatase 73 U/L (46-116); Anion Gap 8 (5-15); Aspartate Aminotransferase 10 U/L (13-40); BUN/Creatinine Ratio 13.4 (10.0-20.0); Blood Urea Nitrogen 17 mg/dL (9-23); Calcium 10.4 mg/dL (8.7-10.4); Carbon Dioxide 24 mmol/L (20-31); Chloride 106 mmol/L (98-107); Glucose 129 mg/dL (74-106); Potassium 4.1 mmol/L (3.5-5.1); Sodium 138 mmol/L (136-145)
[2024-04-08 17:12] LABS: Bilirubin, Total 0.4 mg/dL (0.2-1.0); Total Protein 7.4 g/dL (5.7-8.2)
--- NOTE | 2024-04-08 17:20 | DVH ---
EXAM: XR Chest, 1 View CLINICAL INDICATION: CP TECHNIQUE: Frontal view of the chest. COMPARISON: None FINDINGS: LUNGS AND PLEURAL SPACES: Unremarkable. No consolidation. No pneumothorax. HEART: Unremarkable. No cardiomegaly. MEDIASTINUM: Unremarkable. Normal mediastinal contour. BONES/JOINTS: Unremarkable. No acute fracture. OTHER FINDINGS: . . . IMPRESSION: No acute cardiopulmonary process. HS:Y
[2024-04-08 17:43] LABS: INR 0.97 (0.9-1.15); Partial Thromboplastin Time 26.3 SEC (24.5-34.5); Prothrombin Time 10.3 sec (9.3-11.8)
[2024-04-08] MEDS ORDERED: NITROGLYCERIN 0.4 MG SL TAB SL PRN (21:00)
[2024-04-08] MEDS ORDERED: ONDANSETRON HCL 4 MG/2 ML VIAL IV PRN (21:00)
[2024-04-08] MEDS: SODIUM CHLOR 0.9% PF (SALINE LOCK) 10ML VIAL/SYR IV SCH (22:00)
[2024-04-08 23:42] VITALS: RESP 18; O2SAT 98
[2024-04-08 23:52] VITALS: BP 158/79; PULSE 73; RESP 17; TEMP 98.2; O2SAT 98
[2024-04-09] VITALS (15 sets, daily range): BP systolic 104–158; BP diastolic 40–79; PULSE 63–93; RESP 16–19; TEMP 97.7–98.3; O2SAT 92–98
[2024-04-09] MEDS: MORPHINE SULFATE INJ 2 MG/ml SYRG IV PRN (00:14)
--- NOTE | 2024-04-09 02:25 | DVHHPRES ---
History of Present Illness Resident Creating Document: MARGARITO COLE RESIDENT History of Present Illness Patient is 68 years old female with past medical history of hypertension, COPD, recently treated for pneumonia with sepsis came with a complaint of chest pain and shortness of breaths. As per patient patient is having this chest pain 3 weeks before, central pain, gradually appeared, sharp in nature it was 8/10 at the beginning, radiating to the left breast and left arm, denied any aggravating or relieving factor. As per patient her chest pain worsened today, 7/10, sharp pain, radiating to the left arm and left face, no aggravating or relieving factor.. Patient also endorsed short of breath that has been going on for almost for 1 month. On further discussion patient reported having cough with a whitish mucus sputum and some palpitation. Patient denied any fever, constipation, diarrhea, acute joint pain or swelling, dysarthria or loss of consciousness. Patient was recently admitted at [facility] on 04/06/2024 due to sepsis secondary pneumonia, acute hypoxic respiratory failure and acute exertional COPD and discharged on 04/08/24. Initial lab workup revealed MIKEL serum creatinine 1.27 elevated BNP 657. EKG sinus rhythm, no ST elevation changes. Chest x-ray revealed no acute cardiopulmonary disease PMH-potassium, COPD PSH- none Allergy- NKDA Social history-lives in a car for last few weeks, smokes 4 cigarettes per day, denies alcoholism or drug abuse Past Surgical History Denies any surgical history Review of Systems Review of Systems Patient was seen today at the bedside. Patient reports mild chest pain and cough Cardiovascular- deny palpitation Respiratory- denieswheezing Gastrointestinal- denies any rectal bleeding, nausea or vomiting Musculoskeletal-denies acute joint swelling or tenderness or redness Neurological- denies acute dysarthria, dysphagia, change in vision Psychiatry- denies depression or SI or HI Skin- denies acute rash or purpura Allergies: Coded Allergies: NO KNOWN ALLERGIES (Unverified , 01/17/10) Medications Current Medications Medications Dose Ordered Sig/Vincenzo Route Start Time Stop Time Status Last Admin Dose Admin Sodium Chloride 10 ml Q8HR IV 04/08/24 22:00 04/08/24 22:00 10 ML Ondansetron HCl 4 mg Q4HP PRN IV 04/08/24 21:00 Enoxaparin Sodium 40 mg DAILY SC 04/09/24 10:00 Acetaminophen 650 mg Q6HP PRN PO 04/08/24 21:00 Morphine Sulfate 2 mg Q4HPRN PRN IV 04/08/24 21:00 04/09/24 00:14 2 MG Nitroglycerin 0.4 mg Q5MINP PRN SL 04/08/24 21:00 Morphine Sulfate 2 mg Q30M PRN IV 04/08/24 21:00 Albuterol 2.5 mg Q6HPRN PRN NEB 04/09/24 02:15 UNV Ipratropium [place] 0.5 mg Q6HPRN PRN NEB 04/09/24 02:15 UNV Furosemide 40 mg DAILY IV 04/09/24 10:00 UNV Exam Vital Signs Vital Signs Date Time Temp Pulse Resp B/P (MAP) Pulse Ox O2 Delivery O2 Flow Rate FiO2 04/09/24 00:41 98.2 73 17 158/79 (105) 98 98.2 04/09/24 00:41 Room Air* 0 21 Exam General examination- awake, alert, conversant HEENT- PEERLA, no acute nasal discharge Cardiovascular- chest wall tenderness, S1-S2 audible, rate and rhythm regular, no murmur Respiratory- CTAB, no wheeze or rhonchi Gastrointestinal-nontender, bowel sound+. Nondistended Musculoskeletal-no acute joint swelling or tenderness or redness# Lower extremity- no leg edema Neurological- cranial nerves intact, no acute dysarthria or dysphagia Psychiatry- denies depression or SI or HI Skin- no acute rash or purpura Labs/Xrays Labs Test 04/08/24 21:08 04/08/24 16:32 Range/Units Troponin I High Sensitivity 13 </=34 ng/L White Blood Count 9.1 # 4.4-10.8 10^3/uL Red Blood Count 4.37 4.0-5.20 10^6/uL Hemoglobin 14.1 12.2-16.2 g/dL Hematocrit 40.5 # 36.0-46.0 % Mean Corpuscular Volume 92.6 80.0-100.0 fL Mean Corpuscular Hemoglobin 32.3 H 28.0-32.0 pg Mean Corpuscular Hemoglobin Concent 34.9 32.0-36.0 g/dL Red Cell Distribution Width 14.5 H 11.8-14.3 % Platelet Count 187 140-450 10^3/uL Mean Platelet Volume 8.3 6.9-10.8 fL Neutrophils (%) (Auto) 85.2 H 37.0-80.0 % Lymphocytes (%) (Auto) 10.6 10.0-50.0 % Monocytes (%) (Auto) 3.8 0.0-12.0 % Eosinophils (%) (Auto) 0.0 0.0-7.0 % Basophils (%) (Auto) 0.4 0.0-2.0 % Neutrophils # (Auto) 7.8 1.6-8.6 10 ^3/uL Lymphocytes # (Auto) 1.0 0.4-5.4 10 ^3/uL Monocytes # (Auto) 0.3 0-1.3 10 ^3/uL Eosinophils # (Auto) 0 0-0.8 10 ^3/uL Basophils # (Auto) 0 0-0.2 10 ^3/uL Nucleated Red Blood Cells 0.1 % Prothrombin Time 10.3 9.3-11.8 sec Prothrombin Time INR 0.97 0.9-1.15 Activated Partial Thromboplast Time 26.3 24.5-34.5 SEC Sodium Level 138 136-145 mmol/L Potassium Level 4.1 3.5-5.1 mmol/L Chloride Level 106 98-107 mmol/L Carbon Dioxide Level 24 20-31 mmol/L Anion Gap 8 5-15 Blood Urea Nitrogen 17 # 9-23 mg/dL Creatinine 1.27 #H 0.550-1.02 mg/dL Glomerular Filtration Rate Calc 46 >90 mL/min BUN/Creatinine Ratio 13.4 10.0-20.0 Serum Glucose 129 H 74-106 mg/dL Calcium Level 10.4 8.7-10.4 mg/dL Magnesium Level 2.0 1.6-2.6 mg/dL Total Bilirubin 0.4 0.2-1.0 mg/dL Aspartate Amino Transferase (AST) 10 L 13-40 U/L Alanine Aminotransferase (ALT) 20 7-40 U/L Alkaline Phosphatase 73 46-116 U/L B-Type Natriuretic Peptide 657.88 0-100 pg/mL Total Protein 7.4 5.7-8.2 g/dL Albumin 4.5 3.2-4.8 g/dL Assessment/Plan Assessment/Plan # chest pain likely due to pneumona/Musculoskeletal -rule out ACS - D-dimer .31 -CXR no acute cardiopulmonary disease --BNP 657,> troponin I 9> 10> 13 -pending echo 2D -continue pain medication as prescribed -pending Doppler study of the lower extremity #Acute congestive heart failure, systolic versus diastolic -BNP 657,> troponin I 9> 10> 13 -EKG sinus rhythm, no ST elevation /T-wave changes --D-dimer .31 -CXR no acute cardiopulmonary disease --BNP 657,> troponin I 9> 10> 13 -pending echo 2D -continue Lasix 40 mg daily -consult cardiology # MIKEL likely due to hemodynamically instability/VMN -avoid dehydration and nephrotoxic drugs # COPD -continue nebulization with albuterol and ipratropium bromide as prescribed #Suspected Chronic Bronchitis-likely viral -whitish phlegm - continue current management # hypertension, uncontrolled -continue hydralazine p.r.n. as prescribed -monitor # smoker -patient was counseled about the effect of smoking on health # history of substance abuse -UDS positive for Cannabinoids Goals of care/advance care planning; FULL CODE; discussed with the patient >15 minutes PUD prophylaxis: DVT prophylaxis: Lovenox Plan discussed with Dr. Barth, nursing staff, patient Total time spent on patient evaluation, chart review, assessment and plan, discussion discussion >20 minutes Plan discussed with: Patient Plan discussed with: Patient, Other (RN) My Orders Orders - MARGARITO COLE RESIDENT Procedure Category Date Status Time Admit ADMIT 04/08/24 Transmitted 20:58 Code Status CODE 04/08/24 Transmitted 20:58 Sodium Chloride Lock PHA 04/08/24 In Process (Saline Lock Ns) 22:00 Ondansetron Hcl PHA 04/08/24 In Process (Zofran) 21:00 Enoxaparin Sodium PHA 04/09/24 In Process (Lovenox) 10:00 Acetaminophen Tablet PHA 04/08/24 In Process (Tylenol Tablet) 21:00 Morphine Sulfate PHA 04/08/24 In Process Injection 21:00 Nitroglycerin PHA 04/08/24 In Process Sublingual (Ntrostat 21:00 Morphine Sulfate PHA 04/08/24 In Process Injection 21:00 Oxygen By Nasal RT 04/08/24 Transmitted Cannula 20:58 Stat Ekg For Chest KAYDEN 04/08/24 In Process Pain 20:58 Notify Md Of Changes [facility] 04/08/24 In Process From Base 20:58 Supply Person For [facility] 04/08/24 In Process 24 Hours 20:58 Emergency Dysrhythmia [facility] 04/08/24 In Process Protocol 20:58 Rhythm Strips Once [facility] 04/08/24 In Process Every Shift 20:58 * Tanning Wheel 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
[2024-04-09] MEDS ORDERED: hydrALAZINE HCL 20 MG/ML VL IV PRN (03:00)
[2024-04-09] MEDS: hydrALAZINE HCL 20 MG/ML VL IV ONE (03:00)
[2024-04-09 03:20] LABS: Erythrocyte Sedimentation Rate 11 mm/hr (0-20)
[2024-04-09] MEDS: FUROSEMIDE 40 MG/4 ML VIAL IV ONE (05:06)
[2024-04-09 07:06] LABS: Triglycerides 116 mg/dL (< 150)
[2024-04-09 07:07] LABS: Cholesterol 179 mg/dL (< 200); LDL Cholesterol 83 mg/dL (< 100)
[2024-04-09 07:08] LABS: HDL Cholesterol 69 mg/dL (40-59)
[2024-04-09] MEDS: ALBUTEROL SULF 2.5 MG/0.5ML(0.5%) NEB SOLN NEB PRN (07:39)
[2024-04-09] MEDS: IPRATROPIUM BROM 0.5 MG/2.5ML INH SOL NEB PRN (07:39)
--- NOTE | 2024-04-09 09:54 | DVHPN2 ---
Reviewed: Care Plan, H&P, Labs, Medications, Previous Orders, Radiology Changes from previous H/P or p: No Changes Objective Vitals Vital Signs Date Time Temp Pulse Resp B/P (MAP) Pulse Ox O2 Delivery O2 Flow Rate FiO2 04/09/24 08:48 98.2 68 17 127/75 (92) 95 98.2 04/09/24 08:00 Nasal Cannula* 1 24 Intake/Output Intake and Output 04/09/24 07:00 Intake Total 250 ml Balance 250 ml Intake Oral 250 ml # Voids 1 Medications Current Medications Medications Dose Ordered Sig/Vincenzo Route Start Time Stop Time Status Last Admin Dose Admin Sodium Chloride 10 ml Q8HR IV 04/08/24 22:00 04/09/24 05:06 10 ML Ondansetron HCl 4 mg Q4HP PRN IV 04/08/24 21:00 Enoxaparin Sodium 40 mg DAILY SC 04/09/24 10:00 Acetaminophen 650 mg Q6HP PRN PO 04/08/24 21:00 Morphine Sulfate 2 mg Q4HPRN PRN IV 04/08/24 21:00 04/09/24 00:14 2 MG Nitroglycerin 0.4 mg Q5MINP PRN SL 04/08/24 21:00 Morphine Sulfate 2 mg Q30M PRN IV 04/08/24 21:00 Albuterol 2.5 mg Q6HPRN PRN NEB 04/09/24 02:15 04/09/24 07:39 2.5 MG Ipratropium [place] 0.5 mg Q6HPRN PRN NEB 04/09/24 02:15 04/09/24 07:39 0.5 MG Furosemide 40 mg DAILY IV 04/09/24 10:00 Aspirin 81 mg DAILY PO 04/09/24 10:00 Hydralazine HCl 10 mg Q6HP PRN IV 04/09/24 03:00 Laboratory Results Laboratory Tests 04/08/24 16:32 Chemistry Test 04/08/24 16:32 Albumin 4.5 g/dL (3.2-4.8) Calcium Level 10.4 mg/dL (8.7-10.4) Magnesium Level 2.0 mg/dL (1.6-2.6) Total Protein 7.4 g/dL (5.7-8.2) Coagulation Test 04/08/24 16:32 04/09/24 02:30 Prothrombin Time 10.3 sec (9.3-11.8) Prothrombin Time INR 0.97 (0.9-1.15) Activated Partial Thromboplast Time 26.3 SEC (24.5-34.5) D-Dimer, Quantitative 0.31 mg/L FEU (0.0-0.49) Lipid panel Test 04/09/24 05:02 Cholesterol Level 179 mg/dL (< 200) HDL Cholesterol 69 mg/dL (40-59) H Triglycerides Level 116 mg/dL (< 150) Cardiac Markers Test 04/08/24 16:32 B-Type Natriuretic Peptide 657.88 pg/mL (0-100) LFT Test 04/08/24 16:32 Alanine Aminotransferase (ALT) 20 U/L (7-40) Alkaline Phosphatase 73 U/L (46-116) Aspartate Amino Transferase (AST) 10 U/L (13-40) L Total Bilirubin 0.4 mg/dL (0.2-1.0) Labs and/or images reviewed: Labs reviewed by me, Image(s) reviewed by me Assessment/Plan Assessment/Plan Chest pain rule out coronary artery disease: Troponin negative x3, consult for Possible congestive heart failure BNP 657, echo pending COPD: Albuterol Atrovent Hypertension Chronic current smoker counseling History of substance abuse: check urine drug screen Patient is a readmit discharged home on 04/08/2024 and came back Plan discussed with: Patient My Orders Orders - NRUA CONNOR MD Procedure Category Date Status Time Drug Screen LAB 04/09/24 Logged 09:44 Date of Service: Apr 09, 2024 Billing Provider: NURA CONNOR MD Common Visit Codes: [id number] INP/OBS CARE(HIGH) NURA CONNOR MD Apr 09, 2024 09:54
--- NOTE | 2024-04-09 10:18 | DVH ---
Bilateral lower extremity venous duplex Clinical History: possible DVT to rule out Comparison: None Technique: Duplex Doppler evaluation of the deep venous systems of both lower extremities from the common femora l veins to the popliteal veins including color Doppler and spectral/pulsed waveform analysis was perf ormed. Findings: RIGHT SIDE: The common femoral vein demonstrates appropriate compressibility and waveform variability. There is compressibility/patency of the great saphenous vein at the proximal thigh. The femoral vein demonstrates appropriate compressibility and waveform variability. The deep femoral vein demonstrates appropriate compressibility and waveform variability. The popliteal vein demonstrates appropriate compressibility and waveform variability. There is normal compressibility at the tibioperoneal trunk. LEFT SIDE: The common femoral vein demonstrates appropriate compressibility and waveform variability. There is compressibility/patency of the great saphenous vein at the proximal thigh. The femoral vein demonstrates appropriate compressibility and waveform variability. The deep femoral vein demonstrates appropriate compressibility and waveform variability. The popliteal vein demonstrates appropriate compressibility and waveform variability. There is normal compressibility at the tibioperoneal trunk. Impression: 1. No right or left femoropopliteal venous thrombosis. HS:Y
[2024-04-09] MEDS: ASPirin 81 mg TAB PO SCH (10:22)
[2024-04-09] MEDS: FUROSEMIDE 40 MG/4 ML VIAL IV SCH (10:22)
[2024-04-09] MEDS: ENOXAPARIN SOD 40 MG/0.4 ML SYRINGE SC SCH (10:22)
--- NOTE | 2024-04-09 12:50 | DVHSR ---
APPROVED REPORT EXAM: Two-dimensional and M-mode echocardiogram with Doppler and color Doppler. Blood Pressure: 104/40 mmHg INDICATION Chest Pain RISK FACTORS Height: 5'4", Weight: 158 DIMENSIONS LVDd6.0 (3.8-5.7cm)LA (2D)4.3 (1.9-4.0cm)Aortic Root2.9 (2.0-3.7cm) LVDs4.9 (2.5-4.0cm)LA (MM) (1.9-4.0cm)Aortic Cusp Exc1.7 (1.5-2.0cm) EF (%) 37.0 (55-70%)Rt. Atrium3.7 (1.9-4.0cm)Asc. Aorta3.3 cm IVSd1.0 (0.7-1.1cm)RV (D)3.2 (1.8-2.4cm) PWd1.0 (0.7-1.1cm) Mitral Valve MitralMitral Stenosis E wave0.81m/sMV Mean GR.mmHg A wave0.80m/sMV Peak GR.mmHg E/A ratio1.02D MVAcm2 DECEL [id number] 1/2 [place] Aortic Valve Aortic ValveAortic Stenosis V10.86m/Nelson Mean GR.6mmHg V21.59m/Nelson Peak GR.10mmHg LVOT Diameter2.2 (1.8-2.4cm)Doppler AVA2.06cm2 Tricuspid Valve TR Velocity1.36m/s [id number] Other Information Quality : Technically LimitedRhythm : Technically limited study due to body habitus. Conclusion Moderately reduced left ventricular systolic function estimated ejection fraction 40%. There is glob al wall hypokinesia. Normal right ventricular size and dimension. Normal right ventricular systolic function. Normal biatrial size and dimension. Normal aortic valve structure and function. Normal mitral valve structure and function. Normal tricuspid valve structure function. The pulmonary valve is grossly normal. No pericardial effusion
--- NOTE | 2024-04-09 13:07 | ECG ---
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
--- NOTE | 2024-04-09 13:09 | DVHINCON2 ---
Date Seen: Apr 09, 2024 Referring Physician MD Wilfrid Reason for Consultation Chest pain History of Present Illness This is a 68 year-old female who presented to the emergency room with a chief complaint of chest pain for several weeks. Describes her chest pain as substernal, radiating to the left side, sharp in nature, associated with shortness of breath, and worse when coughing. She underwent a 12-lead electroca rdiogram revealing a sinus rhythm with notched P waves. Serial troponin levels are negative. Of note, the patient was discharged home on 04/08/24. During admission she was treated for an acute COPD exacerbation, acute hypoxic respiratory failure, and sepsis secondary to pneumonia. Significant medical history includes hypertension, COPD with current tobacco use, and recent pneum onia. Past Medical History Past medical history reviewed. No other significant than mentioned above. Past Surgical History Past surgical history reviewed. No other significant than mentioned above. Family History: Alcoholism Arthritis G8 MOTHER FH: stroke G8 FATHER Family History Family history reviewed. Reports father with history of myocardial infarction in his 60s and no invasive cardiac procedures. Social History Denies the use of illicit drugs and alcohol. Admits to tobacco use one pack every four days. Lives in her car. Homeless. Allergies: Coded Allergies: NO KNOWN ALLERGIES (Unverified , 01/17/10) Home Meds Active Scripts Albuterol Sulfate (VENTOLIN MDI) 90 Mcg Ih, 90 MCG IN Q4HR, #1 INH Prov:NURA CONNOR MD 04/08/24 Levofloxacin Hemihydrate (LEVAQUIN 500 MG) 500 Mg Tab, 1 TAB PO DAILY, #7 TAB Prov:NURA CONNOR MD 04/08/24 Reported Medications Carisoprodol (Soma) 250 Mg Tab 01/17/10 Home Meds Home medications reviewed. Current Medications Current Medications Medications (Trade) Dose Ordered Sig/Vincenzo Route PRN Reason Start Time Stop Time Status Last Admin Sodium Chloride (Saline Lock Ns) 10 ml Q8HR IV 04/08/24 22:00 04/09/24 12:04 Ondansetron HCl (Zofran) 4 mg Q4HP PRN IV NAUSEA / VOMITING 04/08/24 21:00 Enoxaparin Sodium (Lovenox) 40 mg DAILY SC 04/09/24 10:00 04/09/24 10:22 Acetaminophen (Tylenol Tablet) 650 mg Q6HP PRN PO PAIN SCALE 1-3 OR TEMP>100.4 04/08/24 21:00 Morphine Sulfate 2 mg Q4HPRN PRN IV SEVERE PAIN (7-10 PAIN SCALE) 04/08/24 21:00 04/09/24 10:32 Nitroglycerin (Ntrostat Sublingual) 0.4 mg Q5MINP PRN SL FOR CHEST PAIN 04/08/24 21:00 Morphine Sulfate 2 mg Q30M PRN IV FOR CHEST PAIN 04/08/24 21:00 Albuterol (Ventolin Medneb) 2.5 mg Q6HPRN PRN NEB SHORTNESS OF BREATH 04/09/24 02:15 04/09/24 07:39 Ipratropium [place] (Atrovent Medneb) 0.5 mg Q6HPRN PRN NEB SHORTNESS OF BREATH 04/09/24 02:15 04/09/24 07:39 Furosemide (Lasix Injection) 40 mg DAILY IV 04/09/24 10:00 04/09/24 10:22 Aspirin 81 mg DAILY PO 04/09/24 10:00 04/09/24 10:22 Hydralazine HCl (Apresoline Injection) 10 mg Q6HP PRN IV SBP>150 04/09/24 03:00 Review of Systems Constitutional: No symptom reported Ears, Nose, & Throat: No symptom reported Eyes: No symptom reported Neurological: No symptoms reported Pulmonary/Respiratory: SOB, cough Cardiovascular: Chest pain Gastrointestinal: No symptom reported Genitourinary: No symptom reported Musculoskeletal: No symptom reported Skin: No symptom reported Psychiatric: No symptom reported Endocrine: No symptom reported Hemotologic/Lymphatic: No symptom reported Vital Signs Vital Signs Date Time Temp Pulse Resp B/P (MAP) Pulse Ox O2 Delivery O2 Flow Rate FiO2 04/09/24 11:02 68 18 127/75 04/09/24 08:48 98.2 95 98.2 04/09/24 08:00 Nasal Cannula* 06 14 Physical Exam General Appearance: Cooperative. Well developed. Well nourished. In no acute distress Head Exam: Normal inspection Neck Exam: Normal inspection. Non-tender. Normal alignment Pulmonary/Respiratory: Chest non-tender. Clear bilateral breath sounds Cardiovascular/Chest: Regular rate and rhythm. S1, S2. NSR. No murmurs. No JVD. Peripheral Pulses: 2+ Radial (R). 2+ Radial (L). 2+ Pedal (R). 2+ Pedal (L) Abdominal Exam: Normal bowel sounds. Soft. Nontender. No hepatospenomegaly. No masses Ankle Exam: Negative ankle edema Lower extremities: Negative lower extremity edema Neuro/Mental Status: A&O x4. Coherent Thoughts/Psych: Normal thought pattern. Anxious Appearance: In no acute distress Skin Exam: Normal inspection. Normal color. Warm. Dry Labs/Diagnostic Data Labs Test 04/09/24 05:02 04/09/24 02:30 04/08/24 21:08 04/08/24 16:32 Range/Units Triglycerides Level 116 < 150 mg/dL Cholesterol Level 179 < 200 mg/dL LDL Cholesterol 83 < 100 mg/dL HDL Cholesterol 69 H 40-59 mg/dL Plasma/Serum Blood Alcohol < 3.0 <10 mg/dL Erythrocyte Sedimentation Rate 11 0-20 mm/hr D-Dimer, Quantitative 0.31 0.0-0.49 mg/L FEU C-Reactive Protein High Sensitivity 0.28 <1.0 mg/dL Troponin I High Sensitivity 13 </=34 ng/L White Blood Count 9.1 # 4.4-10.8 10^3/uL Red Blood Count 4.37 4.0-5.20 10^6/uL Hemoglobin 14.1 12.2-16.2 g/dL Hematocrit 40.5 # 36.0-46.0 % Mean Corpuscular Volume 92.6 80.0-100.0 fL Mean Corpuscular Hemoglobin 32.3 H 28.0-32.0 pg Mean Corpuscular Hemoglobin Concent 34.9 32.0-36.0 g/dL Red Cell Distribution Width 14.5 H 11.8-14.3 % Platelet Count 187 140-450 10^3/uL Mean Platelet Volume 8.3 6.9-10.8 fL Neutrophils (%) (Auto) 85.2 H 37.0-80.0 % Lymphocytes (%) (Auto) 10.6 10.0-50.0 % Monocytes (%) (Auto) 3.8 0.0-12.0 % Eosinophils (%) (Auto) 0.0 0.0-7.0 % Basophils (%) (Auto) 0.4 0.0-2.0 % Neutrophils # (Auto) 7.8 1.6-8.6 10 ^3/uL Lymphocytes # (Auto) 1.0 0.4-5.4 10 ^3/uL Monocytes # (Auto) 0.3 0-1.3 10 ^3/uL Eosinophils # (Auto) 0 0-0.8 10 ^3/uL Basophils # (Auto) 0 0-0.2 10 ^3/uL Nucleated Red Blood Cells 0.1 % Prothrombin Time 10.3 9.3-11.8 sec Prothrombin Time INR 0.97 0.9-1.15 Activated Partial Thromboplast Time 26.3 24.5-34.5 SEC Sodium Level 138 136-145 mmol/L Potassium Level 4.1 3.5-5.1 mmol/L Chloride Level 106 98-107 mmol/L Carbon Dioxide Level 24 20-31 mmol/L Anion Gap 8 5-15 Blood Urea Nitrogen 17 # 9-23 mg/dL Creatinine 1.27 #H 0.550-1.02 mg/dL Glomerular Filtration Rate Calc 46 >90 mL/min BUN/Creatinine Ratio 13.4 10.0-20.0 Serum Glucose 129 H 74-106 mg/dL Calcium Level 10.4 8.7-10.4 mg/dL Magnesium Level 2.0 1.6-2.6 mg/dL Total Bilirubin 0.4 0.2-1.0 mg/dL Aspartate Amino Transferase (AST) 10 L 13-40 U/L Alanine Aminotransferase (ALT) 20 7-40 U/L Alkaline Phosphatase 73 46-116 U/L B-Type Natriuretic Peptide 657.88 0-100 pg/mL Total Protein 7.4 5.7-8.2 g/dL Albumin 4.5 3.2-4.8 g/dL Assessment Chest pain rule out coronary artery disease Acute on chronic decompensated HFrEF, newly diagnosed Hypertension Nicotine dependence Homeless status Plan/Recommendation (Dr. Mendez) The patient with chest pain/SOB presents with a newly diagnosed cardiomyopathy. She will be offered a cardiac catheterization and coronary angiogram to rule out coronary ischemia. In the meantime, continue transthoracic echocardiogram to evaluate cardiac function. Initiate preload and afterload reduction as well as GDMT for CHF and up titrate as tolerated. Initiate nicotine patch, advised to avoid smoking breaks during hospital admission. Monitor ECG changes and notify. DVT/VTE prophylaxis. UDS, hgbA1C, TSH levels pending. Thank you for allowing us to participate in this patient's care. Please call if you have any questions or concerns. This medical document was created using an electronic medical record system with voice recognition software and computerized dictation system. Although this document has been carefully reviewed, there might still be some phonetic and typographical errors. Occasional wrong-word or ``sound-alike substitutions may have occurred due to the inherent limitations of voice recognition software. These areas are purely typographical due to imperfections of the software programs and do not reflect any compromise in the patient's medical care. Please read the chart carefully and recognize, using context, where these substitutions have occurred. Plan discussed with: Patient, Other Date of Service: Apr 09, 2024 Billing Provider: APARNA MENDEZ MD Cardiology Common Codes: [id number] INP/OBS CARE (High) AP [facility] Apr 09, 2024 13:09
[2024-04-09] MEDS ORDERED: GABA-1250 PO (14:55)
[2024-04-09 15:34] LABS: Urine Bacteria None Seen /hpf (None Seen)
[2024-04-09 16:08] LABS: Amphetamine Screen, Urine Neg (NEGATIVE); Benzodiazephine Screen, Urine Neg (NEGATIVE)
[2024-04-09 16:09] LABS: Barbiturate Scree,Urine Neg (NEGATIVE); Cannabinoid Screen, Urine Neg (NEGATIVE); Cocaine Screen, Urine Neg (NEGATIVE); Opiate Scree,Urine Neg (NEGATIVE); Phencyclidine Screen, Urine Neg (NEGATIVE); Urine Blood Negative /uL (Negative); Urine Clarity Clear (Clear); Urine Color Colorless (Yellow); Urine Protein, UAD Negative (Negative); Urine Specific Gravity 1.006 (1.001-1.035); Urine Urobilinogen Normal (Negative); Urine WBC <1 /hpf (0 - 5); Urine pH 5.5 (5.0-9.0)
[2024-04-09] MEDS: METOPROLOL TARTRATE 25 MG TAB PO ONE (16:22)
[2024-04-09] MEDS: SPIRONOLACTONE 25 MG TAB PO ONE (16:25)
[2024-04-09] MEDS: GABAPENTIN 300 MG CAP PO ONE (16:25)
[2024-04-09 20:25] LABS: Free T4 (Free Thyroxine) 0.97 ng/dL (0.89-1.76); T3 Total 0.55 ng/mL (0.60-1.81)
[2024-04-09] MEDS: SACUBITRIL-VALSARTAN 24mg/26mg TAB PO SCH (21:37)
[2024-04-09] MEDS: METOPROLOL TARTRATE 25 MG TAB PO SCH (21:38)
[2024-04-09] MEDS: GABAPENTIN 300 MG CAP PO SCH (21:38)
[2024-04-10] VITALS (15 sets, daily range): BP systolic 99–136; BP diastolic 55–95; PULSE 58–87; RESP 11–20; TEMP 97.5–98; O2SAT 93–97
[2024-04-10 07:48] LABS: Anion Gap 6 (5-15); Basophils # (auto) 0 10 ^3/uL (0-0.2); Basophils % (auto) 0.7 % (0.0-2.0); Carbon Dioxide 28 mmol/L (20-31); Chloride 104 mmol/L (98-107); Eosinophils # (auto) 0 10 ^3/uL (0-0.8); Eosinophils % (auto) 0.1 % (0.0-7.0); Hematocrit 41.8 % (36.0-46.0); Hemoglobin 14.7 g/dL (12.2-16.2); Lymphocytes # (auto) 2.2 10 ^3/uL (0.4-5.4); Lymphocytes % (auto) 37.8 % (10.0-50.0); Mean Corpuscular Hgb Conc. 35.1 g/dL (32.0-36.0); Mean Corpuscular Volume 91.1 fL (80.0-100.0); Monocytes # (auto) 0.5 10 ^3/uL (0-1.3); Monocytes % (auto) 8.9 % (0.0-12.0); Neutrophils % (auto) 52.5 % (37.0-80.0); Nucleated Red Blood Cells % 0.1 %; Platelet Count (auto) 168 10^3/uL (140-450); Potassium 3.7 mmol/L (3.5-5.1); Red Blood Cells 4.59 10^6/uL (4.0-5.20); Red Cell Distribution Width 14.6 % (11.8-14.3); Sodium 138 mmol/L (136-145); White Blood Cell 5.8 10^3/uL (4.4-10.8)
[2024-04-10 07:49] LABS: Calcium 9.5 mg/dL (8.7-10.4)
[2024-04-10 07:54] LABS: Blood Urea Nitrogen 15 mg/dL (9-23); Glucose 94 mg/dL (74-106)
[2024-04-10 07:55] LABS: INR 1.02 (0.9-1.15); Partial Thromboplastin Time 27.6 SEC (24.5-34.5); Prothrombin Time 10.8 sec (9.3-11.8)
[2024-04-10] MEDS: IODIXANOL 320MG/ML 100ML BTL IV ONE (09:35)
[2024-04-10] MEDS: VERAPAMIL 2.5MG/ML INJ 2ML VIAL IV ONE (09:52)
[2024-04-10] MEDS: HEPARIN SODIUM (PORCINE) 5000 UNITS/ML 1ML VIAL ONE (09:52)
[2024-04-10] MEDS: ANGIOMAX 250 MG VIAL IV ONE (09:52)
[2024-04-10] MEDS: MIDAZOLAM HCL 2MG/2ML 2ml VIAL (1mg/ml) ONE (09:53)
[2024-04-10] MEDS: fentaNYL CITRATE 100 MCG/2 ML VL ONE (09:53)
[2024-04-10] MEDS: LIDOCAINE 2%HCL (LOCAL ANESTH.) INJ 20ML MDV ONE (09:53)
[2024-04-10] MEDS: SODIUM CHL 0.9% 0 ML ONE (09:53)
[2024-04-10] MEDS: EMPAGLIFLOZIN 10 MG TAB PO SCH (10:00)
[2024-04-10] MEDS: SPIRONOLACTONE 25 MG TAB PO SCH (10:00)
--- NOTE | 2024-04-10 10:35 | DVHOP2 ---
Operative Report -Cardiology Report Details Date: 04/10/24 Preop Diagnosis: Angina pectoralis with reduced ejection fraction Postop Diagnosis: Coronary angiography revealed moderately heavily calcified atherosclerotic changes of the vessels without significant stenosis. There is a sluggish flow involving all three-vessel is the right coronary artery, the left anterior descending artery as well as the left circumflex without discrete stenosis. Medical therapy is advised. Surgeon: Neal Braswell MD Anesthesiologist: Conscious sedation using25 mcg of fentanyl as well as a mg IV midazolam. It was given direct supervision myself in the presence of the attending nurses. Patient was monitored for total of35 minutes without obvious complication. Anesthesia: Local Consent: The patient was informed of the risks and benefits of the procedure. These include but are not limited to complications of anesthesia, postoperative infection, incomplete relief of symptoms, recurrence of symptoms, damage to blood vessels, nerves and tendons, deep venous thrombosis, pulmonary embolism and possible need for repeat surgery in the future. Indications for Surgery: This is a 68 year-old female who presented to the emergency room with a chief complaint of chest pain for several weeks. Describes her chest pain as substernal, radiating to the left side, sharp in nature, associated with shortness of breath, and worse when coughing. She underwent a 12-lead electrocardiogram revealing a sinus rhythm with notched P waves. Serial troponin levels are negative. Of note, the patient was discharged home on 04/08/24. During admission she was treated for an acute COPD exacerbation, acute hypoxic respiratory failure, and sepsis secondary to pneumonia. Significant medical history includes hypertension, COPD with current tobacco use, and recent pneumonia. Name of Procedure Performed 1. Left heart catheterization with left ventricular end-diastolic pressure measurement. 2. Selective right and left coronary angiography utilizing right transradial approach. 3. Conscious sedation using25 mcg of fentanyl as well as a mg of midazolam. Procedure Details Procedure Details: Procedure note and vascular access: After informed consent was obtained, risks, benefits, complications, alternatives were discussed in details with the patient who agrees to have the procedure done. At the beginning of the procedure, the right wrist and right coronary artery were prepped and draped regular sterile fashion. Patient received total of 25 mcg of fentanyl as well as a mg midazolam for conscious sedation. Thereafter, she received total of 1%2 cc of xylocaine to the right wrist area before a six [place] sheath was placed into the right radial artery using modified Seldinger technique. A cocktail of 2.5 mg of vera pamil as well as 100 mcg of nitroglycerin were given intra-arterial to prevent vasospasm. [place] five [place] catheter as well as benzos J-tip wire were used to cross the aortic valve and engage the right and left coronary system respectively findings were as follows: 1. Left heart catheterization with left ventricular end-diastolic pressure measurement: With the help of a [place] five [place] catheter as well as a J-tip wire we were able to cross the aortic valve and measured left ventricular end-diastolic pressure which was low at 3 mm of mercury. There was no gradient across the aortic valve on the pullback. 2. Selective right and left coronary angiography utilizing right transradial approach: 1. The left main comes off the left coronary cusp it bifurcates distally into large left anterior descending artery as well as a large left circumflex vessel. Left main is free of any significant atherosclerotic plaquing. 2. Left anterior descending artery it is a large vessel that gives rise to two diagonal branches, it has transapical course, it has mild irregularity at 30-40% in the proximal part with sluggish flow but no significant stenosis. It is heavily calcified vessel based on radio dense circumferential involvement of the left anterior descending wall without even contrast administration. 3. The left circumflex artery is medium-sized vessel it gives rise to two obtuse marginal branches cigarette ST has no significant atherosclerotic plaque or stenosis. It has sluggish flow. 4. The right coronary artery is heavily calcified vessels, however it has sluggish flow but no discrete stenosis. It gives rise to the posterior descending artery as well as large posterolateral branch at the distal part of it. Impression plan: 1. No significant atherosclerotic stenosis was noted in the study done today. There is moderately heavily calcified vessels involving all coronary trees. 2. There is a sluggish flow involving three territories of the vessel. 3. Normal left ventricular end-diastolic pressure measurement. 4. Patient has moderately reduced left ventricular systolic function based on echocardiogram, likely explained by microvascular diseases versus myocardial injury from old myocarditis or other etiology Condition Good Disposition NEAL BRASWELL MD Apr 10, 2024 10:35
--- NOTE | 2024-04-10 10:38 | DVHPN2 ---
Reviewed: Care Plan, H&P, Labs, Medications, Previous Orders, Radiology Changes from previous H/P or p: No Changes Objective Vitals Vital Signs Date Time Temp Pulse Resp B/P (MAP) Pulse Ox O2 Delivery O2 Flow Rate FiO2 04/10/24 05:49 57 16 105/61 04/10/24 05:00 97.7 95 97.7 04/10/24 01:31 Room Air* 0 21 Intake/Output Intake and Output 04/10/24 07:00 Intake Total 1400 ml Balance 1400 ml Intake Oral 1400 ml # Voids 5 Medications Current Medications Medications Dose Ordered Sig/Vincenzo Route Start Time Stop Time Status Last Admin Dose Admin Sodium Chloride 10 ml Q8HR IV 04/08/24 22:00 04/10/24 05:01 10 ML Ondansetron HCl 4 mg Q4HP PRN IV 04/08/24 21:00 Enoxaparin Sodium 40 mg DAILY SC 04/09/24 10:00 04/09/24 10:22 40 MG Acetaminophen 650 mg Q6HP PRN PO 04/08/24 21:00 Morphine Sulfate 2 mg Q4HPRN PRN IV 04/08/24 21:00 04/10/24 05:19 2 MG Nitroglycerin 0.4 mg Q5MINP PRN SL 04/08/24 21:00 Morphine Sulfate 2 mg Q30M PRN IV 04/08/24 21:00 Albuterol 2.5 mg Q6HPRN PRN NEB 04/09/24 02:15 04/10/24 01:31 2.5 MG Ipratropium [place] 0.5 mg Q6HPRN PRN NEB 04/09/24 02:15 04/10/24 01:31 0.5 MG Furosemide 40 mg DAILY IV 04/09/24 10:00 04/09/24 10:22 40 MG Aspirin 81 mg DAILY PO 04/09/24 10:00 04/09/24 10:22 81 MG Hydralazine HCl 10 mg Q6HP PRN IV 04/09/24 03:00 Metoprolol Tartrate 12.5 mg BID PO 04/09/24 22:00 04/09/24 21:38 12.5 MG Sacubitril/ Valsartan 0.5 tab BID PO 04/09/24 22:00 11/19/24 21:37 0.5 TAB Spironolactone 12.5 mg DAILY PO 04/10/24 10:00 Empaglifozin 10 mg DAILY PO 04/10/24 10:00 Gabapentin 300 mg BID PO 04/09/24 22:00 04/09/24 21:38 300 MG Laboratory Results Laboratory Tests 04/10/24 07:04 Chemistry Test 04/10/24 07:04 Calcium Level 9.5 mg/dL (8.7-10.4) Coagulation Test 04/10/24 07:04 Prothrombin Time 10.8 sec (9.3-11.8) Prothrombin Time INR 1.02 (0.9-1.15) Activated Partial Thromboplast Time 27.6 SEC (24.5-34.5) Urinalysis Test 04/09/24 14:55 Urine Color Colorless (Yellow) Urine Clarity Clear (Clear) Urine pH 5.5 (5.0-9.0) Urine Specific [place] 1.006 (1.001-1.035) Urine Protein Negative (Negative) Urine Ketones Negative (Negative) Urine Blood Negative /uL (Negative) Urine Nitrite Negative (Negative) Urine Bilirubin Negative (Negative) Urine Urobilinogen Normal mg/dL (Negative) Urine Leukocyte Esterase Negative /uL (Negative) Urine RBC <1 /hpf (0 - 4) Urine WBC <1 /hpf (0 - 5) Urine Squamous Epithelial Cells Few /hpf (<5) Urine Bacteria None seen /hpf (None Seen) Urine Glucose Trace mg/dL (Normal) Labs and/or images reviewed: Labs reviewed by me, Image(s) reviewed by me Assessment/Plan Assessment/Plan Chest pain rule out coronary artery disease: Troponin negative x3, consult for appreciated, patient getting left heart catheterization today Acute on chronic systolic congestive heart failure BNP 657, echo 40 percent ejection continue Jardiance Aldactone Entresto metoprolol Lasix COPD: Albuterol Atrovent Hypertension Chronic current smoker counseling History of substance abuse: check urine drug screen Hypothyroidism with TSH , Synthroid 100 mcg IV daily plus Synthroid 137 mcg p.o. daily Homeless: Social service consult Time Spent 65 minutes Condition guarded Patient is full code Advanced care planning time 20 minutes Plan discussed with: Patient My Orders Orders - NURA CONNOR MD Procedure Category Date Status Time Gabapentin Capsule PHA 04/09/24 In Process (Neurontin Capsule) 22:00 Date of Service: Apr 10, 2024 Billing Provider: NURA CONNOR MD Common Visit Codes: [id number] CARE 30-74 MIN NURA CONNOR MD Apr 10, 2024 10:37
[2024-04-10] MEDS: LEVOTHYROXINE SODIUM 25 MCG TAB PO ONE (10:45)
--- NOTE | 2024-04-10 11:18 | DVHPN2 ---
Progress Note Date Seen: Apr 10, 2024 Has the PT tested + for MRSA If YES, has PT been informed?: No Medical Necessity Reason Pt with a Central, PICC or Fol: No Subjective Patient reports: No new complaints Review of Systems: HEENT:Normal, HEENT:Abnormal, CVS:Normal, CVS:Abnormal, RESPIRATORY:Abnormal Other Systems: Patient still has mild shortness of breath and chest pain today. She underwent coronary angiography which revealed no significant obstructive coronary artery disease but sluggish flow. Given reduced ejection fraction I would recommend that the patient continue aggressive goal-directed medical therapy and follow-up in the cardiology clinic. Objective vital signs Vital Sign Date Time Temp Pulse Resp B/P (MAP) Pulse Ox O2 Delivery O2 Flow Rate FiO2 04/10/24 05:49 57 16 105/61 04/10/24 05:00 97.7 95 97.7 04/10/24 01:31 Room Air* 0 21 Total Intake and Output 04/09/24 04/09/24 04/10/24 15:00 23:00 07:00 Intake Total 800 ml 600 ml Balance 800 ml 600 ml medications Current Medications Medications Dose Ordered Sig/Vincenzo Route Start Time Stop Time Status Last Admin Dose Admin Sodium Chloride 10 ml Q8HR IV 04/08/24 22:00 04/10/24 05:01 10 ML Ondansetron HCl 4 mg Q4HP PRN IV 04/08/24 21:00 Enoxaparin Sodium 40 mg DAILY SC 04/09/24 10:00 04/09/24 10:22 40 MG Acetaminophen 650 mg Q6HP PRN PO 04/08/24 21:00 Morphine Sulfate 2 mg Q4HPRN PRN IV 04/08/24 21:00 04/10/24 05:19 2 MG Nitroglycerin 0.4 mg Q5MINP PRN SL 04/08/24 21:00 Morphine Sulfate 2 mg Q30M PRN IV 04/08/24 21:00 Albuterol 2.5 mg Q6HPRN PRN NEB 04/09/24 02:15 04/10/24 01:31 2.5 MG Ipratropium [place] 0.5 mg Q6HPRN PRN NEB 04/09/24 02:15 04/10/24 01:31 0.5 MG Furosemide 40 mg DAILY IV 04/09/24 10:00 04/09/24 10:22 40 MG Aspirin 81 mg DAILY PO 04/09/24 10:00 04/09/24 10:22 81 MG Hydralazine HCl 10 mg Q6HP PRN IV 04/09/24 03:00 Metoprolol Tartrate 12.5 mg BID PO 04/09/24 22:00 04/09/24 21:38 12.5 MG Sacubitril/ Valsartan 0.5 tab BID PO 04/09/24 22:00 04/09/24 21:37 0.5 TAB Spironolactone 12.5 mg DAILY PO 04/10/24 10:00 Empaglifozin 10 mg DAILY PO 04/10/24 10:00 Gabapentin 300 mg BID PO 04/09/24 22:00 04/09/24 21:38 300 MG laboratory and microbiology Laboratory Tests 04/10/24 07:04 Test 04/10/24 07:04 Range/Units Serum Glucose 94 74-106 mg/dL Problem List/Assessment/Plan Problem List/Assessment/Plan Mrs. Stephen baumann is a 68-year-old lady who presented to the hospital with symptoms of pneumonia. She was discharged but she reports back of the hospital complaining of chest pain. Echocardiogram shows moderately reduced left ventricular systolic function 40%. Coronary angiogram was arranged today in the shows normal coronary arteries with no significant epicardial disease but significant calcification without discrete stenosis. We will recommend aggressive medical therapy with the Entresto, metoprolol, Jardiance, spironolactone, she would need aspirin and statin she will be followed in the outpatient clinic for regular follow-up once he is discharged on antibiotics. Plan discussed with: Patient Date of Service: Apr 10, 2024 Billing Provider: APARNA FERRELL MD Common Visit Codes: [id number] INP/OBS CARE(HIGH) PAARNA FERRELL MD Apr 10, 2024 11:18
--- NOTE | 2024-04-10 12:15 | CONS ---
Pharmacy Clinical Information: CQM HF report. Patient might have been given a non-EBBB for the titration period to determine correct dose. Once the correct dose has been determined, consider switching to an EBBB. ANNA FERRARA PHARMACIST Apr 10, 2024 12:15
[2024-04-10] MEDS ORDERED: ARTIFICIAL TEARS 15ml EACHEYE PRN (19:15)
[2024-04-10] MEDS: NICOTINE 21MG/24 HR TOPICAL PATCH TD SCH (20:41)
[2024-04-11] VITALS (11 sets, daily range): BP systolic 101–121; BP diastolic 40–77; PULSE 66–83; RESP 14–20; TEMP 97.4–98.6; O2SAT 92–98
[2024-04-11] MEDS: TEMAZEPAM 15 MG CAP PO ONE (00:11)
[2024-04-11] MEDS: LEVOTHYROXINE SODIUM 25 MCG TAB PO SCH (06:14)
[2024-04-11 06:59] LABS: Alanine Aminotransferase 18 U/L (7-40); Albumin 3.8 g/dL (3.2-4.8); Alkaline Phosphatase 60 U/L (46-116); Anion Gap 4 (5-15); Aspartate Aminotransferase < 8 U/L (13-40); BUN/Creatinine Ratio 13.6 (10.0-20.0); Bilirubin, Total 0.6 mg/dL (0.2-1.0); Blood Urea Nitrogen 14 mg/dL (9-23); Calcium 9.4 mg/dL (8.7-10.4); Carbon Dioxide 31 mmol/L (20-31); Chloride 103 mmol/L (98-107); Glucose 108 mg/dL (74-106); Potassium 3.5 mmol/L (3.5-5.1); Sodium 138 mmol/L (136-145); Total Protein 5.9 g/dL (5.7-8.2)
[2024-04-11] MEDS: LEVOTHYROXINE SODIUM 100 MCG/5 ML INJ IV SCH (09:51)
--- NOTE | 2024-04-11 10:58 | DVHPN2 ---
Reviewed: Care Plan, H&P, Labs, Medications, Previous Orders, Radiology Changes from previous H/P or p: No Changes Objective Vitals Vital Signs Date Time Temp Pulse Resp B/P (MAP) Pulse Ox O2 Delivery O2 Flow Rate FiO2 04/11/24 09:58 78 19 99/61 04/11/24 09:00 98.6 98 98.6 04/10/24 22:20 Room Air 04/10/24 22:20 0 21 Intake/Output Intake and Output 04/11/24 07:00 Intake Total 1200 ml Output Total 0 ml Balance 1200 ml Intake Oral 1200 ml Output Stool Total 0 ml # Voids 7 Medications Current Medications Medications Dose Ordered Sig/Vincenzo Route Start Time Stop Time Status Last Admin Dose Admin Sodium Chloride 10 ml Q8HR IV 04/08/24 22:00 04/11/24 09:55 10 ML Ondansetron HCl 4 mg Q4HP PRN IV 04/08/24 21:00 Enoxaparin Sodium 40 mg DAILY SC 04/09/24 10:00 04/11/24 09:56 40 MG Acetaminophen 650 mg Q6HP PRN PO 04/08/24 21:00 Morphine Sulfate 2 mg Q4HPRN PRN IV 04/08/24 21:00 04/11/24 09:58 2 MG Nitroglycerin 0.4 mg Q5MINP PRN SL 04/08/24 21:00 Morphine Sulfate 2 mg Q30M PRN IV 04/08/24 21:00 Albuterol 2.5 mg Q6HPRN PRN NEB 04/09/24 02:15 04/10/24 01:31 2.5 MG Ipratropium [place] 0.5 mg Q6HPRN PRN NEB 04/09/24 02:15 04/10/24 01:31 0.5 MG Furosemide 40 mg DAILY IV 04/09/24 10:00 04/10/24 12:32 40 MG Aspirin 81 mg DAILY PO 04/09/24 10:00 04/11/24 09:52 81 MG Hydralazine HCl 10 mg Q6HP PRN IV 04/09/24 03:00 Metoprolol Tartrate 12.5 mg BID PO 04/09/24 22:00 04/10/24 21:36 12.5 MG Sacubitril/ Valsartan 0.5 tab BID PO 04/09/24 22:00 04/10/24 21:35 0.5 TAB Spironolactone 12.5 mg DAILY PO 04/10/24 10:00 04/11/24 09:52 12.5 MG Empaglifozin 10 mg DAILY PO 04/10/24 10:00 Gabapentin 300 mg BID PO 04/09/24 22:00 04/11/24 09:51 300 MG Levothyroxine Sodium 100 mcg DAILY IV 04/11/24 10:00 04/11/24 09:51 100 MCG Levothyroxine Sodium 137 mcg QAM@0600 PO 04/11/24 06:00 04/11/24 06:14 137 MCG Nicotine 1 patch DAILY TD 04/10/24 19:15 04/18/24 11:00 04/11/24 09:55 1 PATCH Artificial Tears 1 drop Q2HP PRN EACHEYE 04/10/24 19:15 Laboratory Results Laboratory Tests 04/10/24 07:04 04/11/24 05:41 Chemistry Test 04/11/24 05:41 Albumin 3.8 g/dL (3.2-4.8) Calcium Level 9.4 mg/dL (8.7-10.4) Total Protein 5.9 g/dL (5.7-8.2) LFT Test 04/11/24 05:41 Alanine Aminotransferase (ALT) 18 U/L (7-40) Alkaline Phosphatase 60 U/L (46-116) Aspartate Amino Transferase (AST) < 8 U/L (13-40) L Total Bilirubin 0.6 mg/dL (0.2-1.0) Urinalysis Test 04/09/24 14:55 Urine Color Colorless (Yellow) Urine Clarity Clear (Clear) Urine pH 5.5 (5.0-9.0) Urine Specific [place] 1.006 (1.001-1.035) Urine Protein Negative (Negative) Urine Ketones Negative (Negative) Urine Blood Negative /uL (Negative) Urine Nitrite Negative (Negative) Urine Bilirubin Negative (Negative) Urine Urobilinogen Normal mg/dL (Negative) Urine Leukocyte Esterase Negative /uL (Negative) Urine RBC <1 /hpf (0 - 4) Urine WBC <1 /hpf (0 - 5) Urine Squamous Epithelial Cells Few /hpf (<5) Urine Bacteria None seen /hpf (None Seen) Urine Glucose Trace mg/dL (Normal) Microbiology Microbiology Date/Time Source Procedure Growth Status 04/09/24 13:50 Nose MRSA Screen - Final Complete Labs and/or images reviewed: Labs reviewed by me, Image(s) reviewed by me Assessment/Plan Assessment/Plan Chest pain rule out coronary artery disease: Troponin negative x3, consult for appreciated, Status Post left heart catheterization by Dr. Andrea Acute on chronic systolic congestive heart failure BNP 657, echo 40 % ejection continue Jardiance Aldactone Entresto metoprolol Lasix COPD: Albuterol Atrovent Hypertension Chronic current smoker counseling History of substance abuse: check urine drug screen Hypothyroidism with TSH , Synthroid 100 mcg IV daily plus Synthroid 137 mcg p.o. daily Homeless: Social service consult Time Spent 65 minutes Condition guarded Patient is full code Advanced care planning time 20 minutes Plan discussed with: Patient Date of Service: Apr 11, 2024 Billing Provider: NURA CONNOR MD Common Visit Codes: [id number] CARE 30-74 MIN UNRA CONNOR MD Apr 11, 2024 10:58
--- NOTE | 2024-04-11 13:44 | DVHPN2 ---
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 Objective vital signs Vital Sign Date Time Temp Pulse Resp B/P (MAP) Pulse Ox O2 Delivery O2 Flow Rate FiO2 04/11/24 13:00 98.0 74 18 117/77 (90) 95 98.0 04/11/24 08:00 Nasal Cannula* 1 24 Total Intake and Output 04/10/24 04/10/24 04/11/24 15:00 23:00 07:00 Intake Total 900 ml 300 ml Output Total 0 ml Balance 900 ml 300 ml medications Current Medications Medications Dose Ordered Sig/Vincenzo Route Start Time Stop Time Status Last Admin Dose Admin Sodium Chloride 10 ml Q8HR IV 04/08/24 22:00 04/11/24 09:55 10 ML Ondansetron HCl 4 mg Q4HP PRN IV 04/08/24 21:00 Enoxaparin Sodium 40 mg DAILY SC 04/09/24 10:00 04/11/24 09:56 40 MG Acetaminophen 650 mg Q6HP PRN PO 04/08/24 21:00 Morphine Sulfate 2 mg Q4HPRN PRN IV 04/08/24 21:00 04/11/24 09:58 2 MG Nitroglycerin 0.4 mg Q5MINP PRN SL 04/08/24 21:00 Morphine Sulfate 2 mg Q30M PRN IV 04/08/24 21:00 Albuterol 2.5 mg Q6HPRN PRN NEB 04/09/24 02:15 04/10/24 01:31 2.5 MG Ipratropium [place] 0.5 mg Q6HPRN PRN NEB 04/09/24 02:15 04/10/24 01:31 0.5 MG Furosemide 40 mg DAILY IV 04/09/24 10:00 04/10/24 12:32 40 MG Aspirin 81 mg DAILY PO 04/09/24 10:00 04/11/24 09:52 81 MG Hydralazine HCl 10 mg Q6HP PRN IV 04/09/24 03:00 Metoprolol Tartrate 12.5 mg BID PO 04/09/24 22:00 04/10/24 21:36 12.5 MG Sacubitril/ Valsartan 0.5 tab BID PO 04/09/24 22:00 04/10/24 21:35 0.5 TAB Spironolactone 12.5 mg DAILY PO 04/10/24 10:00 04/11/24 09:52 12.5 MG Empaglifozin 10 mg DAILY PO 04/10/24 10:00 Gabapentin 300 mg BID PO 04/09/24 22:00 04/11/24 09:51 300 MG Levothyroxine Sodium 100 mcg DAILY IV 04/11/24 10:00 04/11/24 09:51 100 MCG Levothyroxine Sodium 137 mcg QAM@0600 PO 04/11/24 06:00 04/11/24 06:14 137 MCG Nicotine 1 patch DAILY TD 04/10/24 19:15 04/18/24 11:00 04/11/24 09:55 1 PATCH Artificial Tears 1 drop Q2HP PRN EACHEYE 04/10/24 19:15 Levofloxacin/ Dextrose 100 ml @ 100 mls/hr DAILY IV 04/12/24 10:00 Azithromycin 500 mg DAILY PO 04/12/24 10:00 Acetaminophen/ Hydrocodone Bitart 1 tab Q6HP PRN PO 04/11/24 13:30 Examination: GENERAL:Normal, LUNGS:Abnormal (Coarse throughout), CVS:Normal, NEURO:Normal laboratory and microbiology Laboratory Tests 04/11/24 05:41 04/10/24 07:04 Test 04/11/24 05:41 Range/Units Serum Glucose 108 H 74-106 mg/dL Problem List/Assessment/Plan Problem List/Assessment/Plan Chest pain, ruled out coronary artery disease Acute on chronic decompensated HFrEF, newly diagnosed Hypertension Thyroid disease Nicotine dependence Homeless status Plan/Recommendation (Dr. Ferrell) Transthoracic echocardiogram reveals EF of 40% with global wall hypokinesia. The patient underwent a coronary angiogram with left heart catheterization on 04/10/21 which revealed no significant atherosclerotic stenosis. We will recommend continuation of guideline directed medical therapy for CHF. The patient was educated to follow up with a corrections caseworker in the outpatient setting in 1-2 weeks post discharge. There is no further inpatient cardiac workup indicated at this time. Thank you for allowing us to participate in this patient's care. Please call if you have any questions or concerns. This medical document was created using an electronic medical record system with voice recognition software and computerized dictation system. Although this document has been carefully reviewed, there might still be some phonetic and typographical errors. Occasional wrong-word or ``sound-alike substitutions may have occurred due to the inherent limitations of voice recognition software. These areas are purely typographical due to imperfections of the software programs and do not reflect any compromise in the patient's medical care. Please read the chart carefully and recognize, using context, where these substitutions have occurred. Plan discussed with: Patient Date of Service: Apr 11, 2024 Billing Provider: APARNA FERRELL MD Cardiology Common Codes: [id number] [facility] [place] Apr 11, 2024 13:43
[2024-04-11] MEDS: AZITHROMYCIN 250 MG TAB PO ONE (14:27)
[2024-04-11] MEDS: HYDROcodone-ACET 10/325MG TAB PO PRN (14:28)
[2024-04-11] MEDS: levoFLOXacin 500MG 100 ML IV ONE (14:31)
[2024-04-12] VITALS (15 sets, daily range): BP systolic 95–126; BP diastolic 40–76; PULSE 55–80; RESP 13–20; TEMP 97.5–98.3; O2SAT 90–98
[2024-04-12] MEDS: ACETAMINOPHEN 325 MG TAB PO PRN (04:47)
[2024-04-12] MEDS: levoFLOXacin 500MG 100 ML IV SCH (09:20)
[2024-04-12] MEDS: AZITHROMYCIN 250 MG TAB PO SCH (09:21)
--- NOTE | 2024-04-12 11:19 | DVHPN2 ---
Reviewed: Care Plan, H&P, Labs, Medications, Previous Orders, Radiology Changes from previous H/P or p: No Changes Objective Vitals Vital Signs Date Time Temp Pulse Resp B/P (MAP) Pulse Ox O2 Delivery O2 Flow Rate FiO2 04/12/24 09:00 98.0 63 18 126/69 (88) 96 98.0 04/12/24 08:03 Nasal Cannula* 1 24 Intake/Output Intake and Output 04/12/24 07:00 Intake Total 2880 ml Balance 2880 ml Intake Oral 2780 ml IV Total 100 ml # Voids 5 # Bowel Movements 1 Medications Current Medications Medications Dose Ordered Sig/Vincenzo Route Start Time Stop Time Status Last Admin Dose Admin Sodium Chloride 10 ml Q8HR IV 04/08/24 22:00 04/12/24 09:31 10 ML Ondansetron HCl 4 mg Q4HP PRN IV 04/08/24 21:00 Enoxaparin Sodium 40 mg DAILY SC 04/09/24 10:00 04/12/24 09:26 40 MG Acetaminophen 650 mg Q6HP PRN PO 04/08/24 21:00 04/12/24 04:47 650 MG Morphine Sulfate 2 mg Q4HPRN PRN IV 04/08/24 21:00 04/11/24 09:58 2 MG Nitroglycerin 0.4 mg Q5MINP PRN SL 04/08/24 21:00 Morphine Sulfate 2 mg Q30M PRN IV 04/08/24 21:00 Albuterol 2.5 mg Q6HPRN PRN NEB 04/09/24 02:15 04/12/24 00:47 2.5 MG Ipratropium [place] 0.5 mg Q6HPRN PRN NEB 04/09/24 02:15 04/12/24 00:47 0.5 MG Furosemide 40 mg DAILY IV 04/09/24 10:00 04/10/24 12:32 40 MG Aspirin 81 mg DAILY PO 04/09/24 10:00 04/12/24 09:22 81 MG Hydralazine HCl 10 mg Q6HP PRN IV 04/09/24 03:00 Metoprolol Tartrate 12.5 mg BID PO 04/09/24 22:00 04/11/24 22:00 12.5 MG Sacubitril/ Valsartan 0.5 tab BID PO 04/09/24 22:00 04/11/24 22:00 0.5 TAB Spironolactone 12.5 mg DAILY PO 04/10/24 10:00 04/12/24 09:23 12.5 MG Empaglifozin 10 mg DAILY PO 04/10/24 10:00 04/11/24 14:28 10 MG Gabapentin 300 mg BID PO 04/09/24 22:00 04/12/24 09:21 300 MG Levothyroxine Sodium 100 mcg DAILY IV 04/11/24 10:00 04/12/24 09:25 100 MCG Levothyroxine Sodium 137 mcg QAM@0600 PO 04/11/24 06:00 04/12/24 06:59 137 MCG Nicotine 1 patch DAILY TD 04/10/24 19:15 04/18/24 11:00 04/12/24 09:21 1 PATCH Artificial Tears 1 drop Q2HP PRN EACHEYE 04/10/24 19:15 Levofloxacin/ Dextrose 100 ml @ 100 mls/hr DAILY IV 04/12/24 10:00 04/12/24 09:20 100 MLS/HR Azithromycin 500 mg DAILY PO 04/12/24 10:00 04/12/24 09:21 500 MG Acetaminophen/ Hydrocodone Bitart 1 tab Q6HP PRN PO 04/11/24 13:30 04/12/24 09:30 1 TAB Laboratory Results Laboratory Tests 04/10/24 07:04 04/11/24 05:41 Urinalysis Test 04/09/24 14:55 Urine Color Colorless (Yellow) Urine Clarity Clear (Clear) Urine pH 5.5 (5.0-9.0) Urine Specific [place] 1.006 (1.001-1.035) Urine Protein Negative (Negative) Urine Ketones Negative (Negative) Urine Blood Negative /uL (Negative) Urine Nitrite Negative (Negative) Urine Bilirubin Negative (Negative) Urine Urobilinogen Normal mg/dL (Negative) Urine Leukocyte Esterase Negative /uL (Negative) Urine RBC <1 /hpf (0 - 4) Urine WBC <1 /hpf (0 - 5) Urine Squamous Epithelial Cells Few /hpf (<5) Urine Bacteria None seen /hpf (None Seen) Urine Glucose Trace mg/dL (Normal) Microbiology Microbiology Date/Time Source Procedure Growth Status 04/09/24 13:50 Nose MRSA Screen - Final Complete Labs and/or images reviewed: Labs reviewed by me, Image(s) reviewed by me Assessment/Plan Assessment/Plan Chest pain rule out coronary artery disease: Troponin negative x3, consult for appreciated, Status Post left heart catheterization by Dr. Oconnor on 04-10-24, normal coronaries Acute on chronic systolic congestive heart failure BNP 657, echo 40 % ejection continue Jardiance Aldactone Entresto metoprolol Lasix COPD: Albuterol Atrovent Hypertension Chronic current smoker counseling History of substance abuse: Urine drug screen negative now Hypothyroidism with TSH , Synthroid 100 mcg IV daily plus Synthroid 137 mcg p.o. daily Discussed with the patient about fdc facility placement and she agreed. Plan discussed with: Patient My Orders Orders - NURA CONNOR MD Procedure Category Date Status Time Levofloxacin 500mg PHA 04/12/24 In Process (Levaquin 500mg/ 100m 10:00 Azithromycin Tablet PHA 04/12/24 In Process (Zithromax Tablet) 10:00 Hydrocodone-Acet PHA 04/11/24 In Process 10/325mg Tab ([place] 13:30 Pt Request For Service PT 04/12/24 Logged 11:05 Date of Service: Apr 12, 2024 Billing Provider: NURA CONNOR MD Common Visit Codes: [id number] INP/OBS CARE(HIGH) NURA CONNOR MD Apr 12, 2024 11:19
--- NOTE | 2024-04-12 11:36 | DVHDS2 ---
Discharge Summary Date of Admission Apr 08, 2024 at 20:58 Date of Discharge: Apr 12, 2024 Admitting Diagnosis Chest pain Wounds: Left heart catheterization Labs/Diagnostic Data: Laboratory Results Test 04/12/24 11:14 04/11/24 05:41 04/10/24 07:04 04/09/24 19:36 Sodium Level 138 mmol/L (136-145) Potassium Level 3.5 mmol/L (3.5-5.1) Chloride Level 103 mmol/L (98-107) Carbon Dioxide Level 31 mmol/L (20-31) Anion Gap 4 (5-15) Blood Urea Nitrogen 14 mg/dL (9-23) Creatinine 1.03 mg/dL (0.550-1.02) Glomerular Filtration Rate Calc 59 mL/min (>90) BUN/Creatinine Ratio 13.6 (10.0-20.0) Serum Glucose 108 mg/dL (74-106) Calcium Level 9.4 mg/dL (8.7-10.4) Total Bilirubin 0.6 mg/dL (0.2-1.0) Aspartate Amino Transferase (AST) < 8 U/L (13-40) Alanine Aminotransferase (ALT) 18 U/L (7-40) Alkaline Phosphatase 60 U/L (46-116) Total Protein 5.9 g/dL (5.7-8.2) Albumin 3.8 g/dL (3.2-4.8) White Blood Count 5.8 10^3/uL (4.4-10.8) Red Blood Count 4.59 10^6/uL (4.0-5.20) Hemoglobin 14.7 g/dL (12.2-16.2) Hematocrit 41.8 % (36.0-46.0) Mean Corpuscular Volume 91.1 fL (80.0-100.0) Mean Corpuscular Hemoglobin 32.0 pg (28.0-32.0) Mean Corpuscular Hemoglobin Concent 35.1 g/dL (32.0-36.0) Red Cell Distribution Width 14.6 % (11.8-14.3) Platelet Count 168 10^3/uL (140-450) Mean Platelet Volume 8.0 fL (6.9-10.8) Neutrophils (%) (Auto) 52.5 % (37.0-80.0) Lymphocytes (%) (Auto) 37.8 % (10.0-50.0) Monocytes (%) (Auto) 8.9 % (0.0-12.0) Eosinophils (%) (Auto) 0.1 % (0.0-7.0) Basophils (%) (Auto) 0.7 % (0.0-2.0) Neutrophils # (Auto) 3.0 10 ^3/uL (1.6-8.6) Lymphocytes # (Auto) 2.2 10 ^3/uL (0.4-5.4) Monocytes # (Auto) 0.5 10 ^3/uL (0-1.3) Eosinophils # (Auto) 0 10 ^3/uL (0-0.8) Basophils # (Auto) 0 10 ^3/uL (0-0.2) Nucleated Red Blood Cells 0.1 % Prothrombin Time 10.8 sec (9.3-11.8) Prothrombin Time INR 1.02 (0.9-1.15) Activated Partial Thromboplast Time 27.6 SEC (24.5-34.5) Free Thyroxine (T4) Calculated 0.97 ng/dL (0.89-1.76) Total Triiodothyronine (TT3) 0.55 ng/mL (0.60-1.81) Test 04/09/24 14:55 04/09/24 05:02 04/09/24 02:30 04/08/24 21:08 Urine Color Colorless (Yellow) Urine Clarity Clear (Clear) Urine pH 5.5 (5.0-9.0) Urine Specific [place] 1.006 (1.001-1.035) Urine Protein Negative (Negative) Urine Ketones Negative (Negative) Urine Blood Negative /uL (Negative) Urine Nitrite Negative (Negative) Urine Bilirubin Negative (Negative) Urine Urobilinogen Normal mg/dL (Negative) Urine Leukocyte Esterase Negative /uL (Negative) Urine RBC <1 /hpf (0 - 4) Urine WBC <1 /hpf (0 - 5) Urine Squamous Epithelial Cells Few /hpf (<5) Urine Bacteria None seen /hpf (None Seen) Urine Glucose Trace mg/dL (Normal) Urine Opiates Screen Neg (NEGATIVE) Urine Fentanyl Screen Neg (NEGATIVE) Urine Barbiturates Screen Neg (NEGATIVE) Urine Phencyclidine Screen Neg (NEGATIVE) Urine Amphetamines Screen Neg (NEGATIVE) Urine Benzodiazepines Screen Neg (NEGATIVE) Urine Cocaine Screen Neg (NEGATIVE) Urine Cannabinoids Screen Neg (NEGATIVE) Hemoglobin A1c 5.5 % A1C (<5.7) Triglycerides Level 116 mg/dL (< 150) Cholesterol Level 179 mg/dL (< 200) LDL Cholesterol 83 mg/dL (< 100) HDL Cholesterol 69 mg/dL (40-59) Plasma/Serum Blood Alcohol < 3.0 mg/dL (<10) Erythrocyte Sedimentation Rate 11 mm/hr (0-20) D-Dimer, Quantitative 0.31 mg/L FEU (0.0-0.49) C-Reactive Protein High Sensitivity 0.28 mg/dL (<1.0) Troponin I High Sensitivity 13 ng/L (</=34) Test 04/08/24 16:32 Magnesium Level 2.0 mg/dL (1.6-2.6) B-Type Natriuretic Peptide 657.88 pg/mL (0-100) Other Laboratory Tests 04/11/24 05:41 04/10/24 07:04 Brief Hx & Hospital Course: Female with a history of hypertension COPD chronic current smoker previous substance abuse hypothyroidism readmitted for chest pain. Troponin negative x3 cardiology consult by Dr.Al Thornton cath on 04/10/2024 showed normal coronaries. Patient has acute on chronic systolic congestive heart failure exacerbation with a BNP of 657 echo 40 percent ejection fraction. Placed on Jardiance Aldactone Entresto metoprolol Lasix COPD treated with albuterol and Atrovent urine drug screen was negative patient has severe hypothyroidism with TSH D5. Placed on Synthroid 100 mcg IV daily plus Synthroid 137 mcg p.o. daily repeat TSH is pending . At the time of discharge patient will be discharged on Synthroid 150 mcg a day. Cleared for discharge by Cardiology. Patient has poor social support and being discharged to custodial facility for rehab for which the patient agrees. Condition poor but stable at the time of discharge Consults/Reason for consult Cardiology Dr. Oconnor Operations or Procedures Left heart catheterization Condition at Discharge: Fair Final Diagnosis/Problems List Chest pain rule out coronary artery disease: Troponin negative x3, consult for appreciated, Status Post left heart catheterization by Dr. Oconnor on 04-10-24, normal coronaries Acute on chronic systolic congestive heart failure BNP 657, echo 40 % ejection continue Jardiance Aldactone Entresto metoprolol Lasix COPD: Albuterol Atrovent Hypertension Chronic current smoker counseling History of substance abuse: Urine drug screen negative now Hypothyroidism with TSH , Synthroid 100 mcg IV daily plus Synthroid 137 mcg p.o. daily Discharge Disposition: [facility] Facility Discharge Instruct/Medications Diet: Cardiac 2g Na,low cholest Activity: Light activity Follow Up/Referral: Follow up with the senior living doctor Medications: see list 35 (Time taken for discharge summary 35 minutes) Discharge Statement: "Patient was advised to return to the ER or call 911 if any headaches, dizziness, shortness of breath, chest pain, abdominal pain, bleeding, fevers, or worsening of medical condition. Patient was counseled about treatment plan, medications, possible side effects, patientverbalized understanding. All questions were answered to the best of my ability. This discharge took greater then 30 minutes in planning, reviewing documentation, counseling the patient, and discussing with other team members." ASSESSMENT ASSESSMENT Hospital Course Improved Assessment Chest pain rule out coronary artery disease: Troponin negative x3, consult for appreciated, Status Post left heart catheterization by Dr. Oconnor on 04-10-24, normal coronaries Acute on chronic systolic congestive heart failure BNP 657, echo 40 % ejection continue Jardiance Aldactone Entresto metoprolol Lasix COPD: Albuterol Atrovent Hypertension Chronic current smoker counseling History of substance abuse: Urine drug screen negative now Hypothyroidism with TSH , Synthroid 100 mcg IV daily plus Synthroid 137 mcg p.o. daily Date of Service: Apr 12, 2024 Billing Provider: NURA CONNOR MD Common Visit Codes: [id number] DISCH DAY >30min NURA CONNOR MD Apr 12, 2024 11:36
[2024-04-12] MEDS: MELATONIN 5 MG TAB PO SCH (22:47)
[2024-04-13] VITALS (13 sets, daily range): BP systolic 71–130; BP diastolic 40–68; PULSE 66–85; RESP 12–22; TEMP 97.8–98.7; O2SAT 91–98
[2024-04-13] MEDS ORDERED: MELATONIN 5 MG TAB PO SCH (22:00)
[2024-04-14] VITALS (12 sets, daily range): BP systolic 83–127; BP diastolic 44–64; PULSE 62–82; RESP 14–22; TEMP 96.9–98.3; O2SAT 93–100
[2024-04-14] MEDS: diphenhdrAMINE HCL 50 MG/1 ML VL IV PRN (00:30)
--- NOTE | 2024-04-14 12:02 | DVHPN2 ---
Reviewed: Care Plan, H&P, Labs, Medications, Previous Orders, Radiology Changes from previous H/P or p: No Changes Objective Vitals Vital Signs Date Time Temp Pulse Resp B/P (MAP) Pulse Ox O2 Delivery O2 Flow Rate FiO2 04/14/24 11:27 96 Nasal Cannula 1.0 04/14/24 11:27 24 04/14/24 09:00 97.3 68 18 83/50 (61) 97.3 Intake/Output Intake and Output 04/14/24 07:00 Intake Total 2025 ml Output Total 800 ml Balance 1225 ml Intake Oral 1925 ml IV Total 100 ml Output Urine Total 800 ml # Voids 5 Medications Current Medications Medications Dose Ordered Sig/Vincenzo Route Start Time Stop Time Status Last Admin Dose Admin Sodium Chloride 10 ml Q8HR IV 04/08/24 22:00 04/14/24 06:39 10 ML Ondansetron HCl 4 mg Q4HP PRN IV 04/08/24 21:00 Enoxaparin Sodium 40 mg DAILY SC 04/09/24 10:00 04/13/24 09:19 40 MG Acetaminophen 650 mg Q6HP PRN PO 04/08/24 21:00 04/12/24 04:47 650 MG Morphine Sulfate 2 mg Q4HPRN PRN IV 04/08/24 21:00 04/13/24 22:50 2 MG Nitroglycerin 0.4 mg Q5MINP PRN SL 04/08/24 21:00 Morphine Sulfate 2 mg Q30M PRN IV 04/08/24 21:00 Albuterol 2.5 mg Q6HPRN PRN NEB 04/09/24 02:15 04/12/24 22:42 2.5 MG Ipratropium [place] 0.5 mg Q6HPRN PRN NEB 04/09/24 02:15 04/13/24 22:32 0.5 MG Furosemide 40 mg DAILY IV 04/09/24 10:00 04/10/24 12:32 40 MG Aspirin 81 mg DAILY PO 04/09/24 10:00 04/14/24 10:06 81 MG Hydralazine HCl 10 mg Q6HP PRN IV 04/09/24 03:00 Metoprolol Tartrate 12.5 mg BID PO 04/09/24 22:00 04/13/24 20:54 12.5 MG Sacubitril/ Valsartan 0.5 tab BID PO 04/09/24 22:00 04/14/24 10:05 0.5 TAB Spironolactone 12.5 mg DAILY PO 04/10/24 10:00 04/12/24 09:23 12.5 MG Empaglifozin 10 mg DAILY PO 04/10/24 10:00 04/12/24 11:56 10 MG Gabapentin 300 mg BID PO 04/09/24 22:00 04/14/24 10:03 300 MG Levothyroxine Sodium 100 mcg DAILY IV 04/11/24 10:00 04/13/24 09:22 100 MCG Levothyroxine Sodium 137 mcg QAM@0600 PO 04/11/24 06:00 04/14/24 06:39 137 MCG Nicotine 1 patch DAILY TD 04/10/24 19:15 04/18/24 11:00 04/14/24 10:01 1 PATCH Artificial Tears 1 drop Q2HP PRN EACHEYE 04/10/24 19:15 Levofloxacin/ Dextrose 100 ml @ 100 mls/hr DAILY IV 04/12/24 10:00 04/14/24 10:01 100 MLS/HR Azithromycin 500 mg DAILY PO 04/12/24 10:00 04/14/24 10:03 500 MG Acetaminophen/ Hydrocodone Bitart 1 tab Q6HP PRN PO 04/11/24 13:30 04/14/24 10:03 1 TAB Melatonin 5 mg HS PO 04/12/24 22:45 04/13/24 20:55 5 MG Diphenhydramine HCl 25 mg Q4HP PRN IV 04/14/24 00:00 04/14/24 00:30 25 MG Laboratory Results Laboratory Tests 04/10/24 07:04 04/11/24 05:41 Urinalysis Test 04/09/24 14:55 Urine Color Colorless (Yellow) Urine Clarity Clear (Clear) Urine pH 5.5 (5.0-9.0) Urine Specific [place] 1.006 (1.001-1.035) Urine Protein Negative (Negative) Urine Ketones Negative (Negative) Urine Blood Negative /uL (Negative) Urine Nitrite Negative (Negative) Urine Bilirubin Negative (Negative) Urine Urobilinogen Normal mg/dL (Negative) Urine Leukocyte Esterase Negative /uL (Negative) Urine RBC <1 /hpf (0 - 4) Urine WBC <1 /hpf (0 - 5) Urine Squamous Epithelial Cells Few /hpf (<5) Urine Bacteria None seen /hpf (None Seen) Urine Glucose Trace mg/dL (Normal) Microbiology Microbiology Date/Time Source Procedure Growth Status 04/09/24 13:50 Nose MRSA Screen - Final Complete Labs and/or images reviewed: Labs reviewed by me, Image(s) reviewed by me Assessment/Plan Assessment/Plan Chest pain rule out coronary artery disease: Troponin negative x3, consult for appreciated, Status Post left heart catheterization by Dr. Oconnor on 04-10-24, normal coronaries Acute on chronic systolic congestive heart failure BNP 657, echo 40 % ejection continue Jardiance Aldactone Entresto metoprolol Lasix COPD: Albuterol Atrovent Hypertension Chronic current smoker counseling History of substance abuse: Urine drug screen negative now Hypothyroidism with TSH , Synthroid 100 mcg IV daily plus Synthroid 137 mcg p.o. daily Discussed with the patient about long term facility placement and she agreed. Awaiting acceptance by long term facility Plan discussed with: Patient Date of Service: Apr 14, 2024 Billing Provider: NURA CONNOR MD Common Visit Codes: [id number] INP/OBS CARE(HIGH) NURA CONNOR MD Apr 14, 2024 12:02
[2024-04-15] VITALS (13 sets, daily range): BP systolic 99–128; BP diastolic 53–69; PULSE 54–107; RESP 17–20; TEMP 96.6–98; O2SAT 91–100
--- NOTE | 2024-04-15 10:40 | DVHPN2 ---
Reviewed: Care Plan, H&P, Labs, Medications, Previous Orders, Radiology Changes from previous H/P or p: No Changes Objective Vitals Vital Signs Date Time Temp Pulse Resp B/P (MAP) Pulse Ox O2 Delivery O2 Flow Rate FiO2 04/15/24 09:00 97.3 79 17 99/58 (72) 94 97.3 04/15/24 01:40 21 04/15/24 00:12 Room Air 0.0 Intake/Output Intake and Output 04/15/24 07:00 Intake Total 3055 ml Balance 3055 ml Intake Oral 2955 ml IV Total 100 ml # Voids 4 # Bowel Movements 1 Medications Current Medications Medications Dose Ordered Sig/Vincenzo Route Start Time Stop Time Status Last Admin Dose Admin Sodium Chloride 10 ml Q8HR IV 04/08/24 22:00 04/15/24 05:37 10 ML Ondansetron HCl 4 mg Q4HP PRN IV 04/08/24 21:00 Enoxaparin Sodium 40 mg DAILY SC 04/09/24 10:00 04/15/24 10:02 40 MG Acetaminophen 650 mg Q6HP PRN PO 04/08/24 21:00 04/12/24 04:47 650 MG Morphine Sulfate 2 mg Q4HPRN PRN IV 04/08/24 21:00 04/15/24 04:54 2 MG Nitroglycerin 0.4 mg Q5MINP PRN SL 04/08/24 21:00 Morphine Sulfate 2 mg Q30M PRN IV 04/08/24 21:00 Albuterol 2.5 mg Q6HPRN PRN NEB 04/09/24 02:15 04/15/24 00:12 2.5 MG Ipratropium [place] 0.5 mg Q6HPRN PRN NEB 04/09/24 02:15 04/15/24 00:12 0.5 MG Furosemide 40 mg DAILY IV 04/09/24 10:00 04/10/24 12:32 40 MG Aspirin 81 mg DAILY PO 04/09/24 10:00 04/15/24 10:00 81 MG Hydralazine HCl 10 mg Q6HP PRN IV 04/09/24 03:00 Metoprolol Tartrate 12.5 mg BID PO 04/09/24 22:00 04/14/24 20:35 12.5 MG Sacubitril/ Valsartan 0.5 tab BID PO 04/09/24 22:00 04/15/24 10:00 0.5 TAB Spironolactone 12.5 mg DAILY PO 04/10/24 10:00 04/12/24 09:23 12.5 MG Empaglifozin 10 mg DAILY PO 04/10/24 10:00 04/15/24 10:01 10 MG Gabapentin 300 mg BID PO 04/09/24 22:00 04/14/24 20:36 300 MG Levothyroxine Sodium 100 mcg DAILY IV 04/11/24 10:00 04/15/24 10:00 100 MCG Levothyroxine Sodium 137 mcg QAM@0600 PO 04/11/24 06:00 04/15/24 05:37 137 MCG Nicotine 1 patch DAILY TD 04/10/24 19:15 04/18/24 11:00 04/15/24 10:03 1 PATCH Artificial Tears 1 drop Q2HP PRN EACHEYE 04/10/24 19:15 Levofloxacin/ Dextrose 100 ml @ 100 mls/hr DAILY IV 04/12/24 10:00 04/15/24 10:00 100 MLS/HR Azithromycin 500 mg DAILY PO 04/12/24 10:00 04/15/24 10:01 500 MG Acetaminophen/ Hydrocodone Bitart 1 tab Q6HP PRN PO 04/11/24 13:30 04/15/24 10:01 1 TAB Melatonin 5 mg HS PO 04/12/24 22:45 04/14/24 21:54 5 MG Diphenhydramine HCl 25 mg Q4HP PRN IV 04/14/24 00:00 04/14/24 21:48 25 MG Laboratory Results Laboratory Tests 04/10/24 07:04 04/11/24 05:41 Urinalysis Test 04/09/24 14:55 Urine Color Colorless (Yellow) Urine Clarity Clear (Clear) Urine pH 5.5 (5.0-9.0) Urine Specific [place] 1.006 (1.001-1.035) Urine Protein Negative (Negative) Urine Ketones Negative (Negative) Urine Blood Negative /uL (Negative) Urine Nitrite Negative (Negative) Urine Bilirubin Negative (Negative) Urine Urobilinogen Normal mg/dL (Negative) Urine Leukocyte Esterase Negative /uL (Negative) Urine RBC <1 /hpf (0 - 4) Urine WBC <1 /hpf (0 - 5) Urine Squamous Epithelial Cells Few /hpf (<5) Urine Bacteria None seen /hpf (None Seen) Urine Glucose Trace mg/dL (Normal) Microbiology Microbiology Date/Time Source Procedure Growth Status 04/09/24 13:50 Nose MRSA Screen - Final Complete Labs and/or images reviewed: Labs reviewed by me, Image(s) reviewed by me Assessment/Plan Assessment/Plan Chest pain coronary artery disease ruled out: Troponin negative x3, consult for appreciated, Status Post left heart catheterization by Dr. Oconnor on 04-10-24, normal coronaries Acute on chronic systolic congestive heart failure BNP 657, echo 40 % ejection continue Jardiance Aldactone Entresto metoprolol Lasix COPD: Albuterol Atrovent Hypertension Chronic current smoker counseling History of substance abuse: Urine drug screen negative now Hypothyroidism with TSH , Synthroid 100 mcg IV daily plus Synthroid 137 mcg p.o. daily Discussed with the patient about residential facility placement and she agreed. Awaiting acceptance by residential facility Plan discussed with: Patient Date of Service: Apr 15, 2024 Billing Provider: NURA CONNOR MD Common Visit Codes: [id number] INP/OBS CARE(HIGH) NURA CONNOR MD Apr 15, 2024 10:40
[2024-04-16] VITALS (11 sets, daily range): BP systolic 92–115; BP diastolic 40–64; PULSE 75–97; RESP 16–21; TEMP 97.2–98.5; O2SAT 92–98
[2024-04-16] MEDS ORDERED: EMPA1TAB PO (11:40)
[2024-04-16] MEDS ORDERED: LEVO-849 PO (11:40)
[2024-04-16] MEDS ORDERED: SPIR25TA PO (11:40)
[2024-04-16] MEDS ORDERED: METO25TA5 PO (11:40)
[2024-04-16] MEDS ORDERED: SACU1TAB PO (11:40)
[2024-04-16] MEDS ORDERED: FURO1TAB31 PO (11:40)
[2024-04-17] VITALS (9 sets, daily range): BP systolic 98–129; BP diastolic 48–71; PULSE 56–91; RESP 17–19; TEMP 97–97.8; O2SAT 93–100
--- NOTE | 2024-04-17 11:13 | DVHPN2 ---
Reviewed: Care Plan, H&P, Labs, Medications, Previous Orders, Radiology Changes from previous H/P or p: No Changes Objective Vitals Vital Signs Date Time Temp Pulse Resp B/P (MAP) Pulse Ox O2 Delivery O2 Flow Rate FiO2 04/17/24 09:00 97.8 67 19 107/65 (79) 100 97.8 04/17/24 07:02 Nasal Cannula 3.0 04/17/24 07:02 32 Intake/Output Intake and Output 04/17/24 07:00 Intake Total 1950 ml Balance 1950 ml Intake Oral 1850 ml IV Total 100 ml # Voids 3 # Bowel Movements 1 Medications Current Medications Medications Dose Ordered Sig/Vincenzo Route Start Time Stop Time Status Last Admin Dose Admin Sodium Chloride 10 ml Q8HR IV 04/08/24 22:00 04/17/24 05:42 10 ML Ondansetron HCl 4 mg Q4HP PRN IV 04/08/24 21:00 Enoxaparin Sodium 40 mg DAILY SC 04/09/24 10:00 04/17/24 09:33 40 MG Acetaminophen 650 mg Q6HP PRN PO 04/08/24 21:00 04/12/24 04:47 650 MG Morphine Sulfate 2 mg Q4HPRN PRN IV 04/08/24 21:00 04/16/24 22:01 2 MG Nitroglycerin 0.4 mg Q5MINP PRN SL 04/08/24 21:00 Morphine Sulfate 2 mg Q30M PRN IV 04/08/24 21:00 Albuterol 2.5 mg Q6HPRN PRN NEB 04/09/24 02:15 04/15/24 21:09 2.5 MG Ipratropium [place] 0.5 mg Q6HPRN PRN NEB 04/09/24 02:15 04/15/24 21:08 0.5 MG Furosemide 40 mg DAILY IV 04/09/24 10:00 04/10/24 12:32 40 MG Aspirin 81 mg DAILY PO 04/09/24 10:00 04/17/24 09:32 81 MG Hydralazine HCl 10 mg Q6HP PRN IV 04/09/24 03:00 Metoprolol Tartrate 12.5 mg BID PO 04/09/24 22:00 04/16/24 22:03 12.5 MG Sacubitril/ Valsartan 0.5 tab BID PO 04/09/24 22:00 04/16/24 22:03 0.5 TAB Spironolactone 12.5 mg DAILY PO 04/10/24 10:00 04/12/24 09:23 12.5 MG Empaglifozin 10 mg DAILY PO 04/10/24 10:00 04/17/24 09:38 10 MG Gabapentin 300 mg BID PO 04/09/24 22:00 04/17/24 09:33 300 MG Levothyroxine Sodium 100 mcg DAILY IV 04/11/24 10:00 04/17/24 09:33 100 MCG Levothyroxine Sodium 137 mcg QAM@0600 PO 04/11/24 06:00 04/17/24 05:41 137 MCG Nicotine 1 patch DAILY TD 04/10/24 19:15 04/18/24 11:00 04/17/24 10:31 1 PATCH Artificial Tears 1 drop Q2HP PRN EACHEYE 04/10/24 19:15 Levofloxacin/ Dextrose 100 ml @ 100 mls/hr DAILY IV 04/12/24 10:00 04/17/24 09:34 100 MLS/HR Azithromycin 500 mg DAILY PO 04/12/24 10:00 04/17/24 09:32 500 MG Acetaminophen/ Hydrocodone Bitart 1 tab Q6HP PRN PO 04/11/24 13:30 04/17/24 09:57 1 TAB Melatonin 5 mg HS PO 04/12/24 22:45 04/16/24 22:03 5 MG Diphenhydramine HCl 25 mg Q4HP PRN IV 04/14/24 00:00 04/14/24 21:48 25 MG Laboratory Results Laboratory Tests 04/10/24 07:04 04/11/24 05:41 Urinalysis Test 04/09/24 14:55 Urine Color Colorless (Yellow) Urine Clarity Clear (Clear) Urine pH 5.5 (5.0-9.0) Urine Specific [place] 1.006 (1.001-1.035) Urine Protein Negative (Negative) Urine Ketones Negative (Negative) Urine Blood Negative /uL (Negative) Urine Nitrite Negative (Negative) Urine Bilirubin Negative (Negative) Urine Urobilinogen Normal mg/dL (Negative) Urine Leukocyte Esterase Negative /uL (Negative) Urine RBC <1 /hpf (0 - 4) Urine WBC <1 /hpf (0 - 5) Urine Squamous Epithelial Cells Few /hpf (<5) Urine Bacteria None seen /hpf (None Seen) Urine Glucose Trace mg/dL (Normal) Microbiology Microbiology Date/Time Source Procedure Growth Status 04/09/24 13:50 Nose MRSA Screen - Final Complete Labs and/or images reviewed: Labs reviewed by me, Image(s) reviewed by me Assessment/Plan Assessment/Plan Chest pain coronary artery disease ruled out: Troponin negative x3, consult for appreciated, Status Post left heart catheterization by Dr. Oconnor on 04-10-24, normal coronaries Acute on chronic systolic congestive heart failure BNP 657, echo 40 % ejection continue Jardiance Aldactone Entresto metoprolol Lasix COPD: Albuterol Atrovent Hypertension Chronic current smoker counseling History of substance abuse: Urine drug screen negative now Hypothyroidism with TSH , Synthroid 100 mcg IV daily plus Synthroid 137 mcg p.o. daily No custodial facility accepted the patient Patient was discharged home on 04/16/2024 Patient is homeless and social research assistant working on placement Plan discussed with: Patient My Orders Orders - NURA CONNOR MD Procedure Category Date Status Time * Adjunct Professor CONS 04/16/24 Transmitted Consult Discharge DISCHARGE 04/16/24 Transmitted 13:09 * Adjunct Professor CONS 04/16/24 Transmitted Consult Date of Service: Apr 17, 2024 Billing Provider: NURA CONNOR MD Common Visit Codes: [id number] INP/OBS CARE(HIGH) NURA CONNOR MD Apr 17, 2024 11:13
[2024-04-17] MEDS: MORPHINE SULFATE INJ 2 MG/ml SYRG IV PRN (20:06)
[2024-04-18] VITALS (8 sets, daily range): BP systolic 89–114; BP diastolic 43–75; PULSE 68–98; RESP 17–18; TEMP 97.6–98.3; O2SAT 92–99
--- NOTE | 2024-04-18 12:15 | DVHPN2 ---
Reviewed: Care Plan, H&P, Labs, Medications, Previous Orders, Radiology Changes from previous H/P or p: No Changes Objective Vitals Vital Signs Date Time Temp Pulse Resp B/P (MAP) Pulse Ox O2 Delivery O2 Flow Rate FiO2 04/18/24 11:02 78 95/43 04/18/24 08:35 98.3 17 94 98.3 04/18/24 08:00 Room Air* 0 21 Intake/Output Intake and Output 04/18/24 07:00 Intake Total 1850 ml Balance 1850 ml Intake Oral 1850 ml # Voids 4 Medications Current Medications Medications Dose Ordered Sig/Vincenzo Route Start Time Stop Time Status Last Admin Dose Admin Sodium Chloride 10 ml Q8HR IV 04/08/24 22:00 04/18/24 06:40 10 ML Ondansetron HCl 4 mg Q4HP PRN IV 04/08/24 21:00 Enoxaparin Sodium 40 mg DAILY SC 04/09/24 10:00 04/18/24 11:08 40 MG Acetaminophen 650 mg Q6HP PRN PO 04/08/24 21:00 04/12/24 04:47 650 MG Nitroglycerin 0.4 mg Q5MINP PRN SL 04/08/24 21:00 Albuterol 2.5 mg Q6HPRN PRN NEB 04/09/24 02:15 04/15/24 21:09 2.5 MG Ipratropium [place] 0.5 mg Q6HPRN PRN NEB 04/09/24 02:15 04/15/24 21:08 0.5 MG Furosemide 40 mg DAILY IV 04/09/24 10:00 04/10/24 12:32 40 MG Aspirin 81 mg DAILY PO 04/09/24 10:00 04/18/24 11:03 81 MG Hydralazine HCl 10 mg Q6HP PRN IV 04/09/24 03:00 Metoprolol Tartrate 12.5 mg BID PO 04/09/24 22:00 04/18/24 11:02 12.5 MG Sacubitril/ Valsartan 0.5 tab BID PO 04/09/24 22:00 04/17/24 22:48 0.5 TAB Spironolactone 12.5 mg DAILY PO 04/10/24 10:00 04/18/24 11:07 12.5 MG Empaglifozin 10 mg DAILY PO 04/10/24 10:00 04/18/24 11:03 10 MG Gabapentin 300 mg BID PO 04/09/24 22:00 04/18/24 11:00 300 MG Levothyroxine Sodium 100 mcg DAILY IV 04/11/24 10:00 04/18/24 11:08 100 MCG Levothyroxine Sodium 137 mcg QAM@0600 PO 04/11/24 06:00 04/18/24 06:40 137 MCG Artificial Tears 1 drop Q2HP PRN EACHEYE 04/10/24 19:15 Levofloxacin/ Dextrose 100 ml @ 100 mls/hr DAILY IV 04/12/24 10:00 04/18/24 11:09 100 MLS/HR Azithromycin 500 mg DAILY PO 04/12/24 10:00 04/18/24 11:00 500 MG Acetaminophen/ Hydrocodone Bitart 1 tab Q6HP PRN PO 04/11/24 13:30 04/18/24 11:36 1 TAB Melatonin 5 mg HS PO 04/12/24 22:45 04/17/24 22:48 5 MG Diphenhydramine HCl 25 mg Q4HP PRN IV 04/14/24 00:00 04/14/24 21:48 25 MG Laboratory Results Laboratory Tests 04/10/24 07:04 04/11/24 05:41 Urinalysis Test 04/09/24 14:55 Urine Color Colorless (Yellow) Urine Clarity Clear (Clear) Urine pH 5.5 (5.0-9.0) Urine Specific [place] 1.006 (1.001-1.035) Urine Protein Negative (Negative) Urine Ketones Negative (Negative) Urine Blood Negative /uL (Negative) Urine Nitrite Negative (Negative) Urine Bilirubin Negative (Negative) Urine Urobilinogen Normal mg/dL (Negative) Urine Leukocyte Esterase Negative /uL (Negative) Urine RBC <1 /hpf (0 - 4) Urine WBC <1 /hpf (0 - 5) Urine Squamous Epithelial Cells Few /hpf (<5) Urine Bacteria None seen /hpf (None Seen) Urine Glucose Trace mg/dL (Normal) Microbiology Microbiology Date/Time Source Procedure Growth Status 04/09/24 13:50 Nose MRSA Screen - Final Complete Labs and/or images reviewed: Labs reviewed by me, Image(s) reviewed by me Assessment/Plan Assessment/Plan Chest pain coronary artery disease ruled out: Troponin negative x3, consult for appreciated, Status Post left heart catheterization by Dr. Oconnor on 04-10-24, normal coronaries Acute on chronic systolic congestive heart failure BNP 657, echo 40 % ejection continue Jardiance Aldactone Entresto metoprolol Lasix COPD: Albuterol Atrovent Hypertension Chronic current smoker counseling History of substance abuse: Urine drug screen negative now Hypothyroidism with TSH , Synthroid 100 mcg IV daily plus Synthroid 137 mcg p.o. daily No shelter facility accepted the patient Patient was discharged home on 04/16/2024 Board and care today 04-18-24 Plan discussed with: Patient Date of Service: Apr 18, 2024 Billing Provider: NURA CONNOR MD Common Visit Codes: [id number] INP/OBS CARE(HIGH) NURA CONNOR MD Apr 18, 2024 12:15
--- NOTE | 2024-04-21 15:04 | ECG ---
[facility] Test Date: 2024-04-15 Test Time: 13:16:20 Pat Name: PASCUAL PERES Department: Room: 0271T A Gender: F Manager Assurance: maribell chávez : 1955 Requested By: NURA CONNOR Order Number: [id number] Reading MD: Neal Braswell Measurements Intervals [place] Rate: 72 P: -7 [place]: 197 QRS: 5 QRSD: 89 T: 16 QT: 403 QTc: 442 Interpretive Statements Sinus rhythm Atrial premature complexes Low voltage, precordial leads Anteroseptal infarct, old Baseline wander in lead(s) V1,V3,V4 Electronically Signed On 04-22-2024 9:08:32 PST by Neal Braswell Please click the below link to view image of tracing.
--- NOTE | 2024-04-21 15:04 | ECG ---
[facility] Test Date: 2024-04-15 Test Time: 13:17:17 Pat Name: PASCUAL PERES Department: Room: [facility]1T A Gender: F Talent Buyer: maribell chávez : 1955 Requested By: NURA CONNOR Order Number: [id number] Reading MD: Neal Braswell Measurements Intervals [place] Rate: 72 P: -16 [place]: 197 QRS: 5 QRSD: 91 T: 27 QT: 399 QTc: 437 Interpretive Statements Sinus rhythm Atrial premature complexes Low voltage, precordial leads Anteroseptal infarct, old Electronically Signed On 04-22-2024 9:08:33 PST by Neal Braswell Please click the below link to view image of tracing.
== END 2024-04-18 13:36 | disposition home or self-care (01) | DRG 286 ==
LOC: ER 16:21 → TELE 20:58 → TELE-WESTW 21:13
PROVIDERS: ADMIT Internal Medicine; ATTEND Family Medicine
PROC: 4A023N7 Measurement of Cardiac Sampling and Pressure, Left Heart, Percutaneous Approach (ICD-10-PCS; principal; 2024-04-10)
PROC: B211YZZ Fluoroscopy of Multiple Coronary Arteries using Other Contrast (ICD-10-PCS; 2024-04-10)
DX: I11.0 Hypertensive heart disease with heart failure (principal); I50.23 Acute on chronic systolic (congestive) heart failure; J44.1 Chronic obstructive pulmonary disease with (acute) exacerbation; I24.9 Acute ischemic heart disease, unspecified; Z59.02 Unsheltered homelessness; N17.9 Acute kidney failure, unspecified; I42.9 Cardiomyopathy, unspecified; E03.9 Hypothyroidism, unspecified; F17.210 Nicotine dependence, cigarettes, uncomplicated; Z82.49 Family history of ischemic heart disease and other diseases of the circulatory system; Z82.3 Family history of stroke
CPT/HCPCS: 36415; 71045; 80048; 80053; 80061; 80307; 80320; 81001; 83036; 83735; 83880; 84439; 84443; 84480; 84484; 85025; 85379; 85610; 85652; 85730; 86141; 87081; 93005; 93306; 93458; 93970; 94640; 97163; 99152; 99291; G0378; J1956; J2250; J3490; Q9967

== ENCOUNTER → 2025-01-29 | Outpatient (CLI) | payer MEDICAID ==
[~2025-01-29] MED LIST changes: +EMPA1TAB PO; +FURO1TAB31 PO; +GABA-1250 PO; +LEVO-849 PO; +METO25TA5 PO; +SACU1TAB PO; +SPIR25TA PO
[2025-01-29 09:28] LABS: Hematocrit 43.3 % (36.0-46.0); Hemoglobin 15.1 g/dL (12.2-16.2); Mean Corpuscular Hemoglobin 30.0 pg (28.0-32.0); Mean Corpuscular Volume 85.7 fL (80.0-100.0); Nucleated Red Blood Cells % 0.0 %
[2025-01-29 09:36] LABS: Urine Protein, UAD TRACE (Negative)
[2025-01-29 10:09] LABS: Alanine Aminotransferase 10 U/L (7-40); Albumin 4.1 g/dL (3.2-4.8); Alkaline Phosphatase 95 U/L (46-116); BUN/Creatinine Ratio 6.9 (10.0-20.0); Calcium 9.3 mg/dL (8.7-10.4); Cholesterol 150 mg/dL (< 200); HDL Cholesterol 57 mg/dL (40-59); Potassium 3.7 mmol/L (3.5-5.1); Total Protein 7.0 g/dL (5.7-8.2); Triglycerides 92 mg/dL (< 150)
[2025-01-29 10:40] LABS: Anion Gap -3 (5-15); Bilirubin, Total 0.3 mg/dL (0.2-1.0); Blood Urea Nitrogen 7 mg/dL (9-23); Carbon Dioxide 29 mmol/L (20-31); Chloride 111 mmol/L (98-107); Glucose 112 mg/dL (74-106); Sodium 137 mmol/L (136-145)
== END | disposition home or self-care (01) ==
LOC: LAB 09:04
PROVIDERS: ATTEND Student in an Organized Health Care Education/Training Program
DX: I10 Essential (primary) hypertension (principal); E55.9 Vitamin D deficiency, unspecified; R73.9 Hyperglycemia, unspecified; Z13.1 Encounter for screening for diabetes mellitus; Z13.0 Encounter for screening for diseases of the blood and blood-forming organs and certain disorders involving the immune mechanism; Z13.29 Encounter for screening for other suspected endocrine disorder; Z13.228 Encounter for screening for other metabolic disorders
CPT/HCPCS: 36415; 80053; 80061; 81001; 82306; 83036; 84443; 85025